=== PATIENT | male | born 1965 | race Two or more races ===

== ENCOUNTER 2017-01-26 09:29 | Inpatient (IN) | payer OTHER ==
[2017-01-26 09:56] VITALS: BMI 33.9
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
[2017-01-26] MEDS ORDERED: ACETAMINOPHEN 325 MG TABLET (FP) PO PRN (10:44)
[2017-01-26] MEDS ORDERED: IBUPROFEN 400 MG TABLET (FP) PO PRN (10:44)
[2017-01-26] MEDS ORDERED: LOPERAMIDE HCL 2 MG CAPSULE PO PRN (10:44)
[2017-01-26] MEDS ORDERED: guaiFENesin/D-METHORPHAN HB 10 ML UNIT-DOSE CUPS PO PRN (10:44)
[2017-01-26] MEDS ORDERED: hydrOXYzine PAMOATE 50 MG CAPSULE (FP) PO PRN (10:44)
[2017-01-26] MEDS ORDERED: P-EPHED 60MG/TRIPROLIDI 2.5MG TABLET PO PRN (10:44)
[2017-01-26] MEDS ORDERED: MAGNESIUM HYDROX 2400MG/30ML ORAL SUSPENSION 30 ML CUP PO PRN (10:44)
[2017-01-26] MEDS ORDERED: MAGNESIUM CITRATE 300 ML BOTTLE PO PRN (10:44)
[2017-01-26] MEDS ORDERED: diphenhydrAMINE HCL 50 MG CAPSULE PO PRN (10:44)
[2017-01-26] MEDS ORDERED: chlordiazePOXIDE HCL 25 MG CAPSULE PO PRN (10:44)
[2017-01-26] MEDS ORDERED: MENTHOL/PHENOL 1 EACH UD MM PRN (10:44)
[2017-01-26] MEDS ORDERED: MAG HYDROX/AL HYDROX/SIMETH 30 ML UNIT-DOSE CUP PO PRN (10:44)
[2017-01-26] MEDS ORDERED: COLLOIDAL OATMEAL 1 BAR EACH TP PRN (10:45)
[2017-01-26] MEDS ORDERED: chlordiazePOXIDE HCL 25 MG CAPSULE PO ONE (12:00)
[2017-01-26] MEDS: amLODIPine BESYLATE 10 MG TABLET (FP) PO SCH (13:45)
[2017-01-26] MEDS: KETOCONAZOLE 2 % SHAMPOO 120 ML BOTTLE TP SCH (14:35)
[2017-01-26] MEDS: KETOCONOZOLE 2% TOPICAL CREAM 15 GM TUBE TP SCH ×2 (14:36→23:09)
[2017-01-26] MEDS: SILVER SULFADIAZINE 1% TOP CREAM 50 GM JAR TP SCH ×2 (14:36→23:09)
[2017-01-26] MEDS: chlordiazePOXIDE HCL 25 MG CAPSULE PO SCH ×2 (17:46→22:41)
--- NOTE | 2017-01-26 18:10 | CONSULT ---
[facility] Psychiatric Consult - Data Date of interview: 01/26/17 Admission source: [facility] Identifying data: Another admission to [facility] for this 51 y/o male seeking detox treatment on for alcohol and cocaine (crack) dependence.Patient is single without children,homeless (resides in a detention), unemployed and supported on [facility] benefits. Substance Abuse History: Reviewed with patient in this isnterview.Mr Andrea confirms os report. Smoking Cessation. Smoking history: Former smoker. Have you smoked in the past 12 months: No. If you are a former smoker, when did you quit?: 2011. Cigars Per Day: 0 (Stopped in 2011.). Hx Chewing Tobacco Use: No. Initiated information on smoking cessation: No. - Substance & Tx. History. Hx Alcohol Use: Yes. Hx Substance Use: No. Substance Use Type: Alcohol. Hx Substance Use Treatment: Yes (detox). - Substances Abused. Alcohol. Route: Oral. Frequency: Daily. Amount used: 3-4 pints liquor (vodka) . Age of first use: 35. Date of Last Use: 01/25/17 Medical History: Significant for hypertension,kidney stones and a history of corrective eye surgery for strabismus. Psychiatric History: History of multiple psychiatric hospitalizations and multiple admissions to local detox/rehab units.Patient is known to [facility] (site of his first admission at age 48),[facility] and [facility] (a year ago).Diagnosed with MDD / Bipolar Disorder and prescribed trazodone,wellbutrin and abilify.No history of regular psychiatric OPD care.Mr Andrea utilizes local emergency rooms (CPEP settings) as outlets for medications refills.Questionable history of suicide attempts (no recall). Physical/Sexual Abuse/Trauma History: Patient denies. Additional Comment: Urine Drug Screen Results: BZO-Benzodiazepines.Noted. Mental Status Exam - Mental Status Exam Alert and Oriented to: Time, Place, Person Cognitive Function: Good Patient Appearance: Unkempt, Disheveled Mood: Nervous, Withdrawn, Anxious Affect: Mood Congruent Patient Behavior: Fatigued, Cooperative Speech Pattern: Clear Voice Loudness: Normal Thought Process: Goal Oriented Thought Disorder: Not Present Hallucinations: Denies Suicidal Ideation: Denies Homicidal Ideation: Denies Insight/Judgement: Poor Sleep: Poorly, Difficulty falling asleep Appetite: Good Muscle strength/Tone: Normal Gait/Station: Normal Psychiatric Findings - Problem List ([place] 1, 2,3) (1) Alcohol dependence with uncomplicated withdrawal Current Visit: Yes Status: Acute (2) Alcohol-induced mood disorder Current Visit: Yes Status: Acute (3) Depressive disorder Current Visit: Yes Status: Chronic (4) Essential hypertension Current Visit: Yes Status: Chronic (5) Exotropia of left eye Current Visit: Yes Status: Chronic (6) History of coma Current Visit: Yes Status: Chronic (7) History of renal stone Current Visit: Yes Status: Chronic (8) Psoriasis Current Visit: Yes Status: Chronic (9) HTN (hypertension) Current Visit: Yes Status: Chronic Qualifiers: Hypertension type: essential hypertension Qualified Code(s): I10 - Essential (primary) hypertension (10) Insomnia Current Visit: Yes Status: Acute - Initial Treatment Plan Initial Treatment Plan: Psychoeducation.Detoxification.Medications : lexapro 10 mg po daily + trazodone 100 mg po hs + abilify 10 mg po hs.Side effects/ benefits discussed with patient.Mr Andrea is in agreement with this careplan Observation.Medications reconciled.
[2017-01-26] MEDS: traZODone HCL 100 MG TABLET (FP) PO SCH (22:41)
[2017-01-26] MEDS: THIAMINE HCL 100 MG TABLET (FP) PO SCH (22:41)
[2017-01-26] MEDS: ARIPiprazole 10 MG TABLET PO SCH (22:42)
[2017-01-26 23:22] LABS: URINE APPEARANCE SLCLOUDY; URINE BILIRUBIN NEGATIVE (NEGATIVE); URINE BLOOD 2+ (NEGATIVE); URINE COLOR LTYELLOW; URINE GLUCOSE (UA) NEGATIVE (NEGATIVE); URINE KETONE NEGATIVE (NEGATIVE); URINE NITRITE NEGATIVE (NEGATIVE); URINE UROBILINOGEN NEGATIVE mg/dL (0.2-1.0)
[2017-01-26 23:35] LABS: URINE LEUK ESTERASE 3+ (NEGATIVE); URINE PROTEIN 1+ (NEGATIVE)
[2017-01-26 23:46] LABS: URINE BACTERIA RARE /hpf (NONE SEEN); URINE RBC 14 /hpf (0-3); URINE WBC 28 /hpf (3-5)
[2017-01-27] MEDS: chlordiazePOXIDE HCL 25 MG CAPSULE PO SCH ×4 (05:26→22:49)
[2017-01-27 10:30] LABS: MCH 29.8 pg (25.7-33.7); MCHC 33.5 g/dl (32.0-35.9); MEAN PLT VOLUME 8.9 fl (7.5-11.1); PLATELET COUNT 203 K/MM3 (134-434); RDW 14.6 % (11.9-15.9); WHITE BLOOD COUNT 5.6 K/mm3 (4.0-10.0)
[2017-01-27] MEDS: amLODIPine BESYLATE 10 MG TABLET (FP) PO SCH (10:54)
[2017-01-27] MEDS: PRENATAL VITAMINS W/ FOLIC ACID TABLET (FP) PO SCH (10:54)
[2017-01-27] MEDS: ESCITALOPRAM OXALATE 10 MG TABLET (FP) PO SCH (10:54)
[2017-01-27] MEDS: KETOCONOZOLE 2% TOPICAL CREAM 15 GM TUBE TP SCH ×2 (10:55→22:46)
[2017-01-27 11:16] LABS: ALK PHOS 88 U/L (45-117); ANION GAP 10 (8-16); BILIRUBIN,TOTAL 0.4 mg/dL (0.2-1.0); CO2 27 mmol/L (21-32); CREATININE 0.9 mg/dL (0.7-1.3); GLUCOSE,RANDOM 130 mg/dL (74-106); SGOT/AST 25 U/L (15-37); SGPT/ALT 35 U/L (12-78); TOT PROT 8.4 g/dl (6.4-8.2)
[2017-01-27] MEDS: SILVER SULFADIAZINE 1% TOP CREAM 50 GM JAR TP SCH ×2 (11:45→23:07)
--- NOTE | 2017-01-27 12:43 | PN ---
S CIWA - CIWA Score Nausea/Vomitin Muscle Tremors: 3 Anxiety: 3 Agitation: 2 Paroxysmal Sweats: 1-Minimal Palms Moist Orientation: 0-Oriented Tacttile Disturbances: 1-Very Mild Itch/Numbness Auditory Disturbances: 1-Very Mild Visual Disturbances: 1-Very Mild Sensitivity Headache: 2-Mild CIWA-Ar Total Score: 17 BHS Progress Note (SOAP) Subjective: ALERT,IRRITABLE,ANXIOUS,INTERRUPTED SLEEP,TREMOR Objective: 01/27/17 12:40 Vital Signs Temperature 97.9 F 01/27/17 10:37 Pulse Rate 95 H 01/27/17 10:37 Respiratory Rate 20 01/27/17 10:37 Blood Pressure 139/91 01/27/17 10:37 O2 Sat by Pulse Oximetry (%) EKG NSR,NORMAL ECG Laboratory Last Values WBC 5.6 K/mm3 (4.0-10.0) 01/27/17 06:05 RBC 4.28 M/mm3 (4.00-5.60) 01/27/17 06:05 Hgb 12.8 GM/dL (11.7-16.9) D 01/27/17 06:05 Hct 38.1 % (35.4-49) 01/27/17 06:05 MCV 89.0 fl (80-96) 01/27/17 06:05 MCH 29.8 pg (25.7-33.7) 01/27/17 06:05 MCHC 33.5 g/dl (32.0-35.9) 01/27/17 06:05 RDW 14.6 % (11.9-15.9) 01/27/17 06:05 Plt Count 203 K/MM3 (134-434) D 01/27/17 06:05 MPV 8.9 fl (7.5-11.1) D 01/27/17 06:05 Sodium 136 mmol/L (136-145) 01/27/17 06:05 Potassium 3.9 mmol/L (3.5-5.1) 01/27/17 06:05 Chloride 99 mmol/L (98-107) 01/27/17 06:05 Carbon Dioxide 27 mmol/L (21-32) 01/27/17 06:05 Anion Gap 10 (8-16) 01/27/17 06:05 BUN 12 mg/dL (7-18) 01/27/17 06:05 Creatinine 0.9 mg/dL (0.7-1.3) 01/27/17 06:05 Creat Clearance w eGFR > 60 (>60) 01/27/17 06:05 Random Glucose 130 mg/dL (74-106) H 01/27/17 06:05 Calcium 9.0 mg/dL (8.5-10.1) 01/27/17 06:05 Total Bilirubin 0.4 mg/dL (0.2-1.0) 01/27/17 06:05 AST 25 U/L (15-37) D 01/27/17 06:05 ALT 35 U/L (12-78) D 01/27/17 06:05 Alkaline Phosphatase 88 U/L (45-117) D 01/27/17 06:05 Total Protein 8.4 g/dl (6.4-8.2) H 01/27/17 06:05 Albumin 4.0 g/dl (3.4-5.0) 01/27/17 06:05 Urine Color Ltyellow 01/26/17 23:10 Urine Appearance Slcloudy 01/26/17 23:10 Urine pH 5.0 (5.0-8.0) 01/26/17 23:10 Ur Specific [place] 1.020 (1.005-1.025) 01/26/17 23:10 Urine Protein 1+ (NEGATIVE) H 01/26/17 23:10 Urine Glucose (UA) Negative (NEGATIVE) 01/26/17 23:10 Urine Ketones Negative (NEGATIVE) 01/26/17 23:10 Urine Blood 2+ (NEGATIVE) H 01/26/17 23:10 Urine Nitrite Negative (NEGATIVE) 01/26/17 23:10 Urine Bilirubin Negative (NEGATIVE) 01/26/17 23:10 Urine Urobilinogen Negative mg/dL (0.2-1.0) 01/26/17 23:10 Ur Leukocyte Esterase 3+ (NEGATIVE) H 01/26/17 23:10 Urine RBC 14 /hpf (0-3) 01/26/17 23:10 Urine WBC 28 /hpf (3-5) 01/26/17 23:10 Ur Epithelial Cells Rare /hpf (FEW) 01/26/17 23:10 Urine Bacteria Rare /hpf (NONE SEEN) 01/26/17 23:10 Assessment: 01/27/17 12:42 WITHDRAWAL SYMPTOM Plan: CONTINUE DETOX,INITIAL GLUCOSE IS 140,REPEAT UA,FASTING GLUCOSE IN AM
--- NOTE | 2017-01-27 12:54 | EKG ---
Test Reason : Blood Pressure : / mmHG Vent. Rate : 095 BPM Atrial Rate : 095 BPM P-R Int : 160 ms QRS Dur : 080 ms QT Int : 350 ms P-R-T Axes : 056 014 007 degrees QTc Int : 439 ms NORMAL SINUS RHYTHM NORMAL ECG NO PREVIOUS ECGS AVAILABLE Confirmed by MEGAN CONTRERAS MD ([id number]) on 01/27/2017 12:53:52 PM Referred By: Confirmed By:MEGAN CONTRERAS MD
[2017-01-27] MEDS: traZODone HCL 100 MG TABLET (FP) PO SCH (22:45)
[2017-01-27] MEDS: THIAMINE HCL 100 MG TABLET (FP) PO SCH (22:45)
[2017-01-27] MEDS: ARIPiprazole 10 MG TABLET PO SCH (22:48)
[2017-01-28] MEDS: chlordiazePOXIDE HCL 25 MG CAPSULE PO SCH ×2 (05:23→10:29)
[2017-01-28] MEDS: PRENATAL VITAMINS W/ FOLIC ACID TABLET (FP) PO SCH (10:30)
[2017-01-28] MEDS: amLODIPine BESYLATE 10 MG TABLET (FP) PO SCH (10:30)
[2017-01-28] MEDS: KETOCONOZOLE 2% TOPICAL CREAM 15 GM TUBE TP SCH ×2 (10:30→22:28)
[2017-01-28] MEDS: ESCITALOPRAM OXALATE 10 MG TABLET (FP) PO SCH (10:30)
[2017-01-28] MEDS: SILVER SULFADIAZINE 1% TOP CREAM 50 GM JAR TP SCH ×2 (10:32→22:28)
--- NOTE | 2017-01-28 11:33 | PN ---
S CIWA - CIWA Score Nausea/Vomitin Muscle Tremors: 3 Anxiety: 2 Agitation: 2 Paroxysmal Sweats: 1-Minimal Palms Moist Orientation: 0-Oriented Tacttile Disturbances: 1-Very Mild Itch/Numbness Auditory Disturbances: 1-Very Mild Visual Disturbances: 1-Very Mild Sensitivity Headache: 1-Very Mild CIWA-Ar Total Score: 15 S Progress Note (SOAP) Subjective: ALERT,IRRITABLE,ANXIOUS,INTERRUPTED SLEEP,TREMOR Objective: 01/28/17 11:32 Vital Signs Temperature 97.1 F L 01/28/17 10:38 Pulse Rate 106 H 01/28/17 10:38 Respiratory Rate 20 01/28/17 10:38 Blood Pressure 145/99 01/28/17 10:38 O2 Sat by Pulse Oximetry (%) Laboratory Last Values WBC 5.6 K/mm3 (4.0-10.0) 01/27/17 06:05 RBC 4.28 M/mm3 (4.00-5.60) 01/27/17 06:05 Hgb 12.8 GM/dL (11.7-16.9) D 01/27/17 06:05 Hct 38.1 % (35.4-49) 01/27/17 06:05 MCV 89.0 fl (80-96) 01/27/17 06:05 MCH 29.8 pg (25.7-33.7) 01/27/17 06:05 MCHC 33.5 g/dl (32.0-35.9) 01/27/17 06:05 RDW 14.6 % (11.9-15.9) 01/27/17 06:05 Plt Count 203 K/MM3 (134-434) D 01/27/17 06:05 MPV 8.9 fl (7.5-11.1) D 01/27/17 06:05 Sodium 136 mmol/L (136-145) 01/27/17 06:05 Potassium 3.9 mmol/L (3.5-5.1) 01/27/17 06:05 Chloride 99 mmol/L (98-107) 01/27/17 06:05 Carbon Dioxide 27 mmol/L (21-32) 01/27/17 06:05 Anion Gap 10 (8-16) 01/27/17 06:05 BUN 12 mg/dL (7-18) 01/27/17 06:05 Creatinine 0.9 mg/dL (0.7-1.3) 01/27/17 06:05 Creat Clearance w eGFR > 60 (>60) 01/27/17 06:05 Random Glucose 130 mg/dL (74-106) H 01/27/17 06:05 Fasting Glucose 134 mg/dL (70-105) H 01/28/17 07:00 Calcium 9.0 mg/dL (8.5-10.1) 01/27/17 06:05 Total Bilirubin 0.4 mg/dL (0.2-1.0) 01/27/17 06:05 AST 25 U/L (15-37) D 01/27/17 06:05 ALT 35 U/L (12-78) D 01/27/17 06:05 Alkaline Phosphatase 88 U/L (45-117) D 01/27/17 06:05 Total Protein 8.4 g/dl (6.4-8.2) H 01/27/17 06:05 Albumin 4.0 g/dl (3.4-5.0) 01/27/17 06:05 Urine Color Ltyellow 01/26/17 23:10 Urine Appearance Slcloudy 01/26/17 23:10 Urine pH 5.0 (5.0-8.0) 01/26/17 23:10 Ur Specific [place] 1.020 (1.005-1.025) 01/26/17 23:10 Urine Protein 1+ (NEGATIVE) H 01/26/17 23:10 Urine Glucose (UA) Negative (NEGATIVE) 01/26/17 23:10 Urine Ketones Negative (NEGATIVE) 01/26/17 23:10 Urine Blood 2+ (NEGATIVE) H 01/26/17 23:10 Urine Nitrite Negative (NEGATIVE) 01/26/17 23:10 Urine Bilirubin Negative (NEGATIVE) 01/26/17 23:10 Urine Urobilinogen Negative mg/dL (0.2-1.0) 01/26/17 23:10 Ur Leukocyte Esterase 3+ (NEGATIVE) H 01/26/17 23:10 Urine RBC 14 /hpf (0-3) 01/26/17 23:10 Urine WBC 28 /hpf (3-5) 01/26/17 23:10 Ur Epithelial Cells Rare /hpf (FEW) 01/26/17 23:10 Urine Bacteria Rare /hpf (NONE SEEN) 01/26/17 23:10 RPR Titer Nonreactive (NONREACTIVE) 01/27/17 06:05 Assessment: 01/28/17 11:32 WITHDRAWAL SYMPTOM 01/28/17 11:36 Plan: CONTINUE DETOX,BGM BID,REPEAT UA
[2017-01-28] MEDS: chlordiazePOXIDE 5 MG CAPSULE PO SCH ×2 (17:45→22:20)
[2017-01-28] MEDS: THIAMINE HCL 100 MG TABLET (FP) PO SCH (22:19)
[2017-01-28] MEDS: traZODone HCL 100 MG TABLET (FP) PO SCH (22:20)
[2017-01-28] MEDS: ARIPiprazole 10 MG TABLET PO SCH (22:20)
[2017-01-29] MEDS: chlordiazePOXIDE 5 MG CAPSULE PO SCH ×2 (05:30→10:26)
--- NOTE | 2017-01-29 09:05 | PN ---
BHS Progress Note (SOAP) Subjective: ALERT,IRRITABLE,ANXIOUS,INTERRUPTED SLEEP,PAIN IN THE BODY Objective: 01/29/17 09:02 Vital Signs Temperature 96.4 F L 01/29/17 06:00 Pulse Rate 84 01/29/17 06:00 Respiratory Rate 18 01/29/17 06:00 Blood Pressure 111/65 01/29/17 06:00 O2 Sat by Pulse Oximetry (%) Laboratory Last Values WBC 5.6 K/mm3 (4.0-10.0) 01/27/17 06:05 RBC 4.28 M/mm3 (4.00-5.60) 01/27/17 06:05 Hgb 12.8 GM/dL (11.7-16.9) D 01/27/17 06:05 Hct 38.1 % (35.4-49) 01/27/17 06:05 MCV 89.0 fl (80-96) 01/27/17 06:05 MCH 29.8 pg (25.7-33.7) 01/27/17 06:05 MCHC 33.5 g/dl (32.0-35.9) 01/27/17 06:05 RDW 14.6 % (11.9-15.9) 01/27/17 06:05 Plt Count 203 K/MM3 (134-434) D 01/27/17 06:05 MPV 8.9 fl (7.5-11.1) D 01/27/17 06:05 Sodium 136 mmol/L (136-145) 01/27/17 06:05 Potassium 3.9 mmol/L (3.5-5.1) 01/27/17 06:05 Chloride 99 mmol/L (98-107) 01/27/17 06:05 Carbon Dioxide 27 mmol/L (21-32) 01/27/17 06:05 Anion Gap 10 (8-16) 01/27/17 06:05 BUN 12 mg/dL (7-18) 01/27/17 06:05 Creatinine 0.9 mg/dL (0.7-1.3) 01/27/17 06:05 Creat Clearance w eGFR > 60 (>60) 01/27/17 06:05 POC Glucometer 163 UNITS (()) 01/29/17 05:29 Random Glucose 130 mg/dL (74-106) H 01/27/17 06:05 Fasting Glucose 134 mg/dL (70-105) H 01/28/17 07:00 Calcium 9.0 mg/dL (8.5-10.1) 01/27/17 06:05 Total Bilirubin 0.4 mg/dL (0.2-1.0) 01/27/17 06:05 AST 25 U/L (15-37) D 01/27/17 06:05 ALT 35 U/L (12-78) D 01/27/17 06:05 Alkaline Phosphatase 88 U/L (45-117) D 01/27/17 06:05 Total Protein 8.4 g/dl (6.4-8.2) H 01/27/17 06:05 Albumin 4.0 g/dl (3.4-5.0) 01/27/17 06:05 Urine Color Ltyellow 01/26/17 23:10 Urine Appearance Slcloudy 01/26/17 23:10 Urine pH 5.0 (5.0-8.0) 01/26/17 23:10 Ur Specific [place] 1.020 (1.005-1.025) 01/26/17 23:10 Urine Protein 1+ (NEGATIVE) H 01/26/17 23:10 Urine Glucose (UA) Negative (NEGATIVE) 01/26/17 23:10 Urine Ketones Negative (NEGATIVE) 01/26/17 23:10 Urine Blood 2+ (NEGATIVE) H 01/26/17 23:10 Urine Nitrite Negative (NEGATIVE) 01/26/17 23:10 Urine Bilirubin Negative (NEGATIVE) 01/26/17 23:10 Urine Urobilinogen Negative mg/dL (0.2-1.0) 01/26/17 23:10 Ur Leukocyte Esterase 3+ (NEGATIVE) H 01/26/17 23:10 Urine RBC 14 /hpf (0-3) 01/26/17 23:10 Urine WBC 28 /hpf (3-5) 01/26/17 23:10 Ur Epithelial Cells Rare /hpf (FEW) 01/26/17 23:10 Urine Bacteria Rare /hpf (NONE SEEN) 01/26/17 23:10 RPR Titer Nonreactive (NONREACTIVE) 01/27/17 06:05 Assessment: 01/29/17 09:03 WITHDRAWAL SYMPTOM Plan: CONTINUE DETOX,NEW ON SET OF DM,BGM BID MONITORING,HBA1C,LENS DOTTER CONSULTATION, FOLLOW UP WITH PMD FOR FOLLOW UP AFTER DISCHARGE
[2017-01-29 10:01] LABS: URINE APPEARANCE SLCLOUDY; URINE BILIRUBIN NEGATIVE (NEGATIVE); URINE BLOOD 1+ (NEGATIVE); URINE COLOR STRAW; URINE GLUCOSE (UA) 1+ (NEGATIVE); URINE KETONE NEGATIVE (NEGATIVE); URINE NITRITE NEGATIVE (NEGATIVE); URINE PROTEIN NEGATIVE (NEGATIVE); URINE UROBILINOGEN NEGATIVE mg/dL (0.2-1.0)
[2017-01-29] MEDS: PRENATAL VITAMINS W/ FOLIC ACID TABLET (FP) PO SCH (10:26)
[2017-01-29] MEDS: ESCITALOPRAM OXALATE 10 MG TABLET (FP) PO SCH (10:26)
[2017-01-29] MEDS: KETOCONOZOLE 2% TOPICAL CREAM 15 GM TUBE TP SCH ×2 (10:26→22:23)
[2017-01-29] MEDS: amLODIPine BESYLATE 10 MG TABLET (FP) PO SCH (10:26)
[2017-01-29] MEDS: SILVER SULFADIAZINE 1% TOP CREAM 50 GM JAR TP SCH ×2 (10:29→22:24)
[2017-01-29] MEDS: KETOCONAZOLE 2 % SHAMPOO 120 ML BOTTLE TP SCH (10:30)
[2017-01-29 10:40] LABS: URINE LEUK ESTERASE 3+ (NEGATIVE)
[2017-01-29 11:43] LABS: URINE MUCUS RARE; URINE RBC 3 /hpf (0-3); URINE WBC 45 /hpf (3-5); YEAST RARE
[2017-01-29] MEDS: chlordiazePOXIDE HCL 10 MG CAPSULE PO SCH ×2 (17:41→22:23)
[2017-01-29] MEDS: traZODone HCL 100 MG TABLET (FP) PO SCH (22:23)
[2017-01-29] MEDS: ARIPiprazole 10 MG TABLET PO SCH (22:24)
[2017-01-29] MEDS: THIAMINE HCL 100 MG TABLET (FP) PO SCH (22:24)
[2017-01-30] MEDS: chlordiazePOXIDE HCL 10 MG CAPSULE PO SCH (05:48)
--- NOTE | 2017-01-30 08:37 | DS ---
[facility] Detox Discharge Summary Admission Date: 01/26/17 Discharge Date: 01/30/17 - History Present History: Alcohol Dependence Additional Comments: follow up with [facility] program as arrangement and own pmd for dr [place] Pertinent Past History: essential hypertension history of renal stone psoriasis ulcer left forearm history of coma in 11/24 [facility] history of tracheostomy - Physical Exam Results Vital Signs: Vital Signs Temperature 98.4 F 01/29/17 21:20 Pulse Rate 98 H 01/29/17 21:20 Respiratory Rate 18 01/30/17 00:30 Blood Pressure 144/87 01/29/17 21:20 O2 Sat by Pulse Oximetry (%) Pertinent Admission Physical Exam Findings: withdrawal symptom - Treatment Hospital Course: Detox Protocol Followed, Detoxed Safely, Responded well, Discharged Condition Good Patient has Accepted a Rehab Referral to: declined - Medication Discharge Medications: Ambulatory Orders Aripiprazole [Abilify -] 15 mg PO DAILY 10/21/13 Amlodipine Besylate [Amlodipine Besylate] 10 mg PO DAILY 03/10/16 Aripiprazole [Abilify -] 10 mg PO DAILY #30 tablet 01/26/17 Escitalopram Oxalate [Lexapro -] 10 mg PO DAILY 01/26/17 Escitalopram Oxalate [Lexapro -] 10 mg PO DAILY #30 tablet 01/26/17 Trazodone HCl 100 mg PO HS #20 tablet 01/26/17 Trazodone HCl [Desyrel -] 200 mg PO HS 01/26/17 - Diagnosis (1) Alcohol dependence with uncomplicated withdrawal Current Visit: Yes Status: Acute (2) Alcohol-induced mood disorder Current Visit: Yes Status: Acute (3) Insomnia Current Visit: Yes Status: Acute (4) Depressive disorder Current Visit: Yes Status: Chronic (5) Essential hypertension Current Visit: Yes Status: Chronic (6) Exotropia of left eye Current Visit: Yes Status: Chronic (7) HTN (hypertension) Current Visit: Yes Status: Chronic Qualifiers: Hypertension type: essential hypertension Qualified Code(s): I10 - Essential (primary) hypertension (8) History of coma Current Visit: Yes Status: Chronic (9) Alcohol-induced anxiety disorder Current Visit: No Status: Suspected (10) MDD (major depressive disorder) Current Visit: No Status: Suspected (11) New onset type 2 diabetes mellitus Current Visit: Yes Status: Acute (12) Skin ulcer of forearm Current Visit: Yes Status: Acute - AMA Did Patient Leave Against Medical Advice: No
[2017-01-30] MEDS: ESCITALOPRAM OXALATE 10 MG TABLET (FP) PO SCH (09:27)
[2017-01-30] MEDS: amLODIPine BESYLATE 10 MG TABLET (FP) PO SCH (09:27)
[2017-01-30] MEDS: PRENATAL VITAMINS W/ FOLIC ACID TABLET (FP) PO SCH (09:27)
[2017-01-30] MEDS: KETOCONOZOLE 2% TOPICAL CREAM 15 GM TUBE TP SCH (09:28)
[2017-01-30] MEDS: SILVER SULFADIAZINE 1% TOP CREAM 50 GM JAR TP SCH (09:28)
[2017-01-30 09:51] VITALS: BP 133/81; PULSE 87; TEMP 97.9
== END 2017-01-30 10:15 | disposition home or self-care (01) | DRG 897 ==
LOC: YASAS 09:29 → Y6N 12:40
PROVIDERS: ADMIT Internal Medicine; ATTEND Internal Medicine
PROC: HZ2ZZZZ Detoxification Services for Substance Abuse Treatment (ICD-10-PCS; principal; 2017-01-30)
DX: F19.230 Other psychoactive substance dependence with withdrawal, uncomplicated (principal); F33.9 Major depressive disorder, recurrent, unspecified; F10.230 Alcohol dependence with withdrawal, uncomplicated; F10.24 Alcohol dependence with alcohol-induced mood disorder; G47.00 Insomnia, unspecified; I11.0 Hypertensive heart disease with heart failure; E11.9 Type 2 diabetes mellitus without complications; L40.8 Other psoriasis; H50.10 Unspecified exotropia; L98.491 Non-pressure chronic ulcer of skin of other sites limited to breakdown of skin
CPT/HCPCS: 36415; 80053; 81003; 81015; 82947; 83036; 85027; 86593; 86803; 93005; 93010

== ENCOUNTER 2017-03-22 10:21 | Inpatient (IN) | payer OTHER ==
[2017-03-22 11:48] VITALS: BMI 34.8
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
[2017-03-22] MEDS ORDERED: ACETAMINOPHEN 325 MG TABLET (FP) PO PRN (13:12)
[2017-03-22] MEDS ORDERED: LOPERAMIDE HCL 2 MG CAPSULE PO PRN (13:12)
[2017-03-22] MEDS ORDERED: MAGNESIUM HYDROX 2400MG/30ML ORAL SUSPENSION 30 ML CUP PO PRN (13:12)
[2017-03-22] MEDS ORDERED: MAGNESIUM CITRATE 300 ML BOTTLE PO PRN (13:12)
[2017-03-22] MEDS ORDERED: IBUPROFEN 400 MG TABLET (FP) PO PRN (13:12)
[2017-03-22] MEDS ORDERED: hydrOXYzine PAMOATE 50 MG CAPSULE (FP) PO PRN (13:12)
[2017-03-22] MEDS ORDERED: guaiFENesin/D-METHORPHAN HB 10 ML UNIT-DOSE CUPS PO PRN (13:12)
[2017-03-22] MEDS ORDERED: MAG HYDROX/AL HYDROX/SIMETH 30 ML UNIT-DOSE CUP PO PRN (13:12)
[2017-03-22] MEDS ORDERED: P-EPHED 60MG/TRIPROLIDI 2.5MG TABLET PO PRN (13:12)
[2017-03-22] MEDS ORDERED: MENTHOL/PHENOL 1 EACH UD MM PRN (13:12)
[2017-03-22] MEDS ORDERED: chlordiazePOXIDE HCL 25 MG CAPSULE PO PRN (13:12)
[2017-03-22] MEDS ORDERED: chlordiazePOXIDE HCL 25 MG CAPSULE PO ONE (13:53)
[2017-03-22] MEDS: SILVER SULFADIAZINE 1% TOP CREAM 50 GM JAR TP SCH ×2 (15:24→22:44)
[2017-03-22] MEDS: amLODIPine BESYLATE 10 MG TABLET (FP) PO SCH (15:24)
[2017-03-22] MEDS: chlordiazePOXIDE HCL 25 MG CAPSULE PO SCH ×2 (17:15→22:13)
[2017-03-22 20:25] LABS: URINE APPEARANCE SLCLOUDY; URINE BILIRUBIN NEGATIVE (NEGATIVE); URINE BLOOD 2+ (NEGATIVE); URINE COLOR YELLOW; URINE GLUCOSE (UA) NEGATIVE (NEGATIVE); URINE KETONE NEGATIVE (NEGATIVE); URINE NITRITE NEGATIVE (NEGATIVE); URINE UROBILINOGEN NEGATIVE mg/dL (0.2-1.0)
[2017-03-22 20:41] LABS: URINE PROTEIN 2+ (NEGATIVE)
[2017-03-22 20:51] LABS: URINE BACTERIA MODERATE /hpf (NONE SEEN); URINE RBC 16 /hpf (0-3); URINE WBC 82 /hpf (3-5)
[2017-03-22 21:57] LABS: URINE LEUK ESTERASE 1+ (NEGATIVE)
[2017-03-22] MEDS: cloNIDine HCL 0.1 MG TABLET PO PRN (22:13)
[2017-03-22] MEDS: THIAMINE HCL 100 MG TABLET (FP) PO SCH (22:13)
[2017-03-22] MEDS: diphenhydrAMINE HCL 50 MG CAPSULE PO PRN (22:14)
[2017-03-23] MEDS: diphenhydrAMINE HCL 50 MG CAPSULE PO PRN (00:26)
[2017-03-23] MEDS: chlordiazePOXIDE HCL 25 MG CAPSULE PO SCH ×4 (05:32→22:48)
[2017-03-23] MEDS: PRENATAL VITAMINS W/ FOLIC ACID TABLET (FP) PO SCH (10:58)
[2017-03-23] MEDS: amLODIPine BESYLATE 10 MG TABLET (FP) PO SCH (10:58)
[2017-03-23 11:02] LABS: MCH 28.7 pg (25.7-33.7); MCHC 32.9 g/dl (32.0-35.9); MEAN CELL VOLUME 87.3 fl (80-96); MEAN PLT VOLUME 8.7 fl (7.5-11.1); PLATELET COUNT 251 K/MM3 (134-434); RDW 15.1 % (11.9-15.9); WHITE BLOOD COUNT 7.4 K/mm3 (4.0-10.0)
[2017-03-23] MEDS: SILVER SULFADIAZINE 1% TOP CREAM 50 GM JAR TP SCH ×2 (11:07→22:49)
[2017-03-23 11:08] LABS: ALBUMIN 4.2 g/dl (3.4-5.0); ANION GAP 10 (8-16); CO2 29 mmol/L (21-32); GLUCOSE,RANDOM 123 mg/dL (74-106)
--- NOTE | 2017-03-23 12:54 | EKG ---
Test Reason : Blood Pressure : / mmHG Vent. Rate : 102 BPM Atrial Rate : 102 BPM P-R Int : 156 ms QRS Dur : 076 ms QT Int : 322 ms P-R-T Axes : 057 023 033 degrees QTc Int : 419 ms SINUS TACHYCARDIA POSSIBLE LEFT ATRIAL ENLARGEMENT WHEN COMPARED WITH ECG OF 26-JAN-2017 14:14, NO SIGNIFICANT CHANGE WAS FOUND Confirmed by EDMAR PERKINS MD ([id number]) on 03/23/2017 12:54:12 PM Referred By: Confirmed By:EDMAR PERKINS MD
[2017-03-23 12:57] LABS: ALK PHOS 84 U/L (45-117); BILIRUBIN,TOTAL 0.7 mg/dL (0.2-1.0); SGOT/AST 24 U/L (15-37); SGPT/ALT 26 U/L (12-78); TOT PROT 8.6 g/dl (6.4-8.2)
--- NOTE | 2017-03-23 13:15 | PN ---
[facility] CIWA - CIWA Score Nausea/Vomitin Muscle Tremors: 3 Anxiety: 3 Agitation: 3 Paroxysmal Sweats: 1-Minimal Palms Moist Orientation: 0-Oriented Tacttile Disturbances: 1-Very Mild Itch/Numbness Auditory Disturbances: 1-Very Mild Visual Disturbances: 0-None Headache: 2-Mild CIWA-Ar Total Score: 17 BHS Progress Note (SOAP) Subjective: alert,irritable,anxious,interrupted sleep,tremor,pain in the body Objective: 03/23/17 13:12 Vital Signs Temperature 97.7 F 03/23/17 10:31 Pulse Rate 96 H 03/23/17 10:31 Respiratory Rate 20 03/23/17 10:31 Blood Pressure 144/94 03/23/17 10:31 O2 Sat by Pulse Oximetry (%) ekg sinus tachycardia 102/min no chest pain,no sob,no dizziness Laboratory Last Values WBC 7.4 K/mm3 (4.0-10.0) D 03/23/17 06:00 RBC 4.51 M/mm3 (4.00-5.60) 03/23/17 06:00 Hgb 13.0 GM/dL (11.7-16.9) 03/23/17 06:00 Hct 39.4 % (35.4-49) 03/23/17 06:00 MCV 87.3 fl (80-96) 03/23/17 06:00 MCH 28.7 pg (25.7-33.7) 03/23/17 06:00 MCHC 32.9 g/dl (32.0-35.9) 03/23/17 06:00 RDW 15.1 % (11.9-15.9) 03/23/17 06:00 Plt Count 251 K/MM3 (134-434) D 03/23/17 06:00 MPV 8.7 fl (7.5-11.1) 03/23/17 06:00 Sodium 137 mmol/L (136-145) 03/23/17 06:00 Potassium 4.0 mmol/L (3.5-5.1) 03/23/17 06:00 Chloride 98 mmol/L (98-107) 03/23/17 06:00 Carbon Dioxide 29 mmol/L (21-32) 03/23/17 06:00 Anion Gap 10 (8-16) 03/23/17 06:00 BUN 13 mg/dL (7-18) 03/23/17 06:00 Creatinine 1.0 mg/dL (0.7-1.3) 03/23/17 06:00 Creat Clearance w eGFR > 60 (>60) 03/23/17 06:00 POC Glucometer 191 UNITS (()) 03/22/17 16:26 Random Glucose 123 mg/dL (74-106) H 03/23/17 06:00 Total Bilirubin 0.7 mg/dL (0.2-1.0) D 03/23/17 06:00 AST 24 U/L (15-37) 03/23/17 06:00 ALT 26 U/L (12-78) D 03/23/17 06:00 Alkaline Phosphatase 84 U/L (45-117) 03/23/17 06:00 Total Protein 8.6 g/dl (6.4-8.2) H 03/23/17 06:00 Albumin 4.2 g/dl (3.4-5.0) 03/23/17 06:00 Urine Color Yellow 03/22/17 19:00 Urine Appearance Slcloudy 03/22/17 19:00 Urine pH 5.0 (5.0-8.0) 03/22/17 19:00 Ur Specific [place] 1.020 (1.005-1.025) 03/22/17 19:00 Urine Protein 2+ (NEGATIVE) H 03/22/17 19:00 Urine Glucose (UA) Negative (NEGATIVE) 03/22/17 19:00 Urine Ketones Negative (NEGATIVE) 03/22/17 19:00 Urine Blood 2+ (NEGATIVE) H 03/22/17 19:00 Urine Nitrite Negative (NEGATIVE) 03/22/17 19:00 Urine Bilirubin Negative (NEGATIVE) 03/22/17 19:00 Urine Urobilinogen Negative mg/dL (0.2-1.0) 03/22/17 19:00 Ur Leukocyte Esterase 1+ (NEGATIVE) H 03/22/17 19:00 Urine RBC 16 /hpf (0-3) 03/22/17 19:00 Urine WBC 82 /hpf (3-5) 03/22/17 19:00 Ur Epithelial Cells Rare /hpf (FEW) 03/22/17 19:00 Urine Bacteria Moderate /hpf (NONE SEEN) 03/22/17 19:00 Assessment: 03/23/17 13:14 withdrawal symptom Plan: continue detox,urine for c/s,uti,bactrim ds 1 tab po bid
[2017-03-23 13:16] LABS: CALCIUM 9.7 mg/dL (8.5-10.1)
--- NOTE | 2017-03-23 16:49 | CONSULT ---
[facility] Psychiatric Consult - Data Date of interview: 03/23/17 Admission source: [facility] Identifying data: Readmission to [facility] for this 52 y/o male seeking detox treatment on for alcohol and cocaine (crack) dependence.Patient is single without children,homeless (resides in a assisted), unemployed and supported on SSI benefits. Substance Abuse History: Confirmed by the patient in this interview. Smoking Cessation. Smoking history: Former smoker. Have you smoked in the past 12 months: No. If you are a former smoker, when did you quit?: 2011. Cigars Per Day: 0. Hx Chewing Tobacco Use: No. Initiated information on smoking cessation : No. - Substance & Tx. History. Hx Alcohol Use: Yes. Hx Substance Use: No. Substance Use Type: Alcohol. Hx Substance Use Treatment: Yes ([facility] 01/26/17 to 01/30/17). - Substances Abused. Alcohol. Route: Oral. Frequency: Daily. Amount used: 2-4 PINTS VODKA. Age of first use: 35. Date of Last Use: 03/21/17 Medical History: Diabetes mellitus,hypertension,nephrolithiasis,past history of head trauma (was in coma),previously treated with a tracheostomy and history of corrective eye surgery for strabismus. Psychiatric History: Minimal changes since previous encounter with this va underwriter on 01/16/17. As follows : " history of multiple psychiatric hospitalizations and multiple admissions to local detox/rehab units.Patient is known to [facility] (site of his first admission at age 48),[facility] and [facility] (a year ago).Diagnosed with MDD / Bipolar Disorder and prescribed trazodone,wellbutrin and abilify.No history of regular psychiatric OPD care.Mr Andrea utilizes local emergency rooms (CPEP settings) as outlets for medications refills.Questionable history of suicide attempts (no recall)." End of quote.Patient,in this interview,indicates that [facility]Denies suicide attempts. Physical/Sexual Abuse/Trauma History: Patient denies history of abuse. Additional Comment: Urine Drug Screen Results: BZO-Benzodiazepines.Noted. Mental Status Exam - Mental Status Exam Alert and Oriented to: Time, Place Cognitive Function: Grossly Intact Patient Appearance: Well Groomed Mood: Nervous, Anxious, Hopeful Affect: Mood Congruent, Normal Range Patient Behavior: Fatigued, Appropriate, Cooperative Speech Pattern: Clear Voice Loudness: Normal Thought Process: Goal Oriented Thought Disorder: Not Present Hallucinations: Denies Suicidal Ideation: Denies Homicidal Ideation: Denies Insight/Judgement: Poor Sleep: Poorly, Difficulty falling asleep (wants ambien) Appetite: Fair Muscle strength/Tone: Normal Gait/Station: Normal Psychiatric Findings - Problem List ([place] 1, 2,3) (1) Alcohol dependence with uncomplicated withdrawal Current Visit: Yes Status: Acute (2) Alcohol-induced mood disorder Current Visit: Yes Status: Acute (3) Depressive disorder Current Visit: Yes Status: Chronic (4) Diabetes Current Visit: Yes Status: Acute (5) HTN (hypertension) Current Visit: Yes Status: Chronic Qualifiers: Hypertension type: essential hypertension Qualified Code(s): I10 - Essential (primary) hypertension; I10 - Essential (primary) hypertension; I10 - Essential (primary) hypertension (6) History of renal stone Current Visit: Yes Status: Chronic (7) Psoriasis Current Visit: Yes Status: Chronic (8) Exotropia of left eye Current Visit: No Status: Chronic (9) Insomnia secondary to depression with anxiety Current Visit: Yes Status: Acute - Initial Treatment Plan Initial Treatment Plan: Psychoeducation.Detoxification.Medications : abilify 10 mg po hs + bupropion 100 mg po bid.Side effects/benefits are discussed with the patient.He agrees with this careplan.Observation.
[2017-03-23] MEDS: SULFAMETHOXAZOLE/TRIMETHOPRIM 800MG/160MG D.S. TABLET PO SCH (22:48)
[2017-03-23] MEDS: THIAMINE HCL 100 MG TABLET (FP) PO SCH (22:48)
[2017-03-23] MEDS: ARIPiprazole 10 MG TABLET PO SCH (22:49)
[2017-03-24] MEDS: chlordiazePOXIDE HCL 25 MG CAPSULE PO SCH ×2 (06:03→10:57)
[2017-03-24] MEDS: SILVER SULFADIAZINE 1% TOP CREAM 50 GM JAR TP SCH ×2 (10:57→23:00)
[2017-03-24] MEDS: buPROPion HCL 100 MG TABLET PO SCH ×2 (10:57→15:29)
[2017-03-24] MEDS: amLODIPine BESYLATE 10 MG TABLET (FP) PO SCH (10:57)
[2017-03-24] MEDS: PRENATAL VITAMINS W/ FOLIC ACID TABLET (FP) PO SCH (10:57)
[2017-03-24] MEDS: SULFAMETHOXAZOLE/TRIMETHOPRIM 800MG/160MG D.S. TABLET PO SCH ×2 (10:57→22:59)
--- NOTE | 2017-03-24 11:00 | PN ---
Psychiatric Progress Note Vital Signs: Vital Signs Period Temp Pulse Resp BP Sys/Dia Pulse Ox Last 24 Hr 96.1 F-98 F 88-98 18-20 111-144/83-94 Date of Session: 03/24/17 Chief Complaint:: Insomnia HPI: Patient addressing Alcohol Dependence comorbid with Alcohol-Induced Mood Disorder, Depressive Disorder ROS: HTN, DM, Psoriasis, Kidney stone Current Medications: Active Medications Generic Name Dose Route Start Last Admin Trade Name Freq PRN Reason Stop Dose Admin Acetaminophen 650 mg 03/22/17 13:12 Tylenol - PO Q4H PRN FEVER OR PAIN Al Hydroxide/Mg Hydroxide 30 ml 03/22/17 13:12 Mylanta Oral Suspension - PO Q6H PRN DYSPEPSIA Amlodipine Besylate 10 mg 03/22/17 13:55 03/23/17 10:58 Norvasc - PO 10 mg DAILY FERNANDA Administration Aripiprazole 10 mg 03/23/17 22:00 03/23/17 22:49 Abilify PO 10 mg HS FERNANDA Administration Bupropion HCl 100 mg 03/24/17 10:00 Wellbutrin - PO BID@1000,1600 FERNANDA Chlordiazepoxide HCl 10 mg 03/25/17 17:00 Librium - PO 03/26/17 11:01 [id number] FERNANDA Chlordiazepoxide HCl 25 mg 03/22/17 13:12 03/23/17 00:26 Librium - PO 03/25/17 13:11 25 mg Q4H PRN Administration WITHDRAWAL(CONT SUBST) Chlordiazepoxide HCl 25 mg 03/23/17 17:00 03/24/17 06:03 Librium - PO 03/24/17 11:01 25 mg [id number] FERNANDA Administration Chlordiazepoxide HCl 15 mg 03/24/17 17:00 Librium - PO 03/25/17 11:01 [id number] FERNANDA Clonidine 0.1 mg 03/22/17 22:08 03/22/17 22:13 Catapres - PO 0.1 mg Q6H PRN Administration HYPERTENSION Diphenhydramine HCl 50 mg 03/22/17 13:12 03/23/17 00:26 Benadryl - PO 50 mg HSMR1 PRN Administration INSOMNIA Eucalyptus/Menthol/Phenol/Sorbitol 1 each 03/22/17 13:12 Cepastat Lozenge - MM Q4H PRN SORE THROAT Guaifenesin 10 ml 03/22/17 13:12 Robitussin Dm - PO Q6H PRN COUGH Hydrocortisone 1 applic 03/24/17 10:00 Hytone 1% Cream - TP DAILY FERNANDA Hydroxyzine Pamoate 50 mg 03/22/17 13:12 Vistaril - PO Q4H PRN AGITATION Ibuprofen 400 mg 03/22/17 13:12 Motrin - PO Q6H PRN SEVERE PAIN Loperamide HCl 4 mg 03/22/17 13:12 Imodium - PO Q6H PRN DIARRHEA Magnesium Citrate 300 ml 03/22/17 13:12 Citroma - PO Q48H PRN CONSTIPATION Magnesium Hydroxide 30 ml 03/22/17 13:12 Milk Of Magnesia - PO DAILY PRN CONSTIPATION Multivit/Folic Acid/Iron 1 tab 03/23/17 10:00 03/23/17 10:58 Vitamins (Sjr) - PO 1 tab DAILY FERNANDA Administration Pseudoephedrine/Triprolidine 1 combo 03/22/17 13:12 Actifed - PO TID PRN NASAL CONGESTION Silver Sulfadiazine 1 applic 03/22/17 13:30 03/23/17 22:49 Silvadene - TP Not Given BID FERNANDA Thiamine HCl 100 mg 03/22/17 22:00 03/23/17 22:48 Vitamin B1 - PO 100 mg HS FERNANDA Administration Trimethoprim/Sulfamethoxazole 1 each 03/23/17 22:00 03/23/17 22:48 Bactrim Ds - PO 1 each BID FERNANDA Administration Zolpidem Tartrate 10 mg 03/24/17 10:54 Ambien - PO HS PRN INSOMNIA Current Side Effect: No Lab tests ordered: Yes Lab tests reviewed: Yes Provider note:: Patient reports experiencing difficulty to sleep. Told sports writer that he has been sleeping poorly despite taking medications. Requests to be ordered Ambien to which he responded well in the past Total face to face time:: 25 Mental Status Exam - Mental Status Exam Alert and Oriented to: Time, Place, Person Cognitive Function: Fair Mood: Hopeful, Euthymic Affect: Appropriate Patient Behavior: Cooperative Speech Pattern: Clear Voice Loudness: Normal Thought Process: Intact, Goal Oriented Thought Disorder: Not Present Hallucinations: Denies Suicidal Ideation: Denies Homicidal Ideation: Denies Insight/Judgement: Poor Sleep: Poorly Appetite: Good Muscle strength/Tone: Normal Gait/Station: Normal Psychiatric Treatment Plan - Problem List (1) Depressive disorder Current Visit: Yes (2) Alcohol-induced mood disorder Current Visit: Yes (3) Alcohol-induced sleep disorder Current Visit: Yes (4) Alcohol dependence with uncomplicated withdrawal Current Visit: Yes (5) Diabetes Current Visit: Yes (6) HTN (hypertension) Current Visit: Yes Qualifiers: Hypertension type: essential hypertension Qualified Code(s): I10 - Essential (primary) hypertension; I10 - Essential (primary) hypertension; I10 - Essential (primary) hypertension (7) History of renal stone Current Visit: Yes (8) Exotropia of left eye Current Visit: No Initial treatment plan: 1) Start Ambien 10 mg po HS prn for insomnia. 2) Continue inpatient detoxification
[2017-03-24] MEDS: HYDROCORTISONE 1% TOPICAL CREAM 30 GM TUBE TP SCH (11:21)
--- NOTE | 2017-03-24 13:39 | PN ---
S CIWA - CIWA Score Nausea/Vomitin Muscle Tremors: 3 Anxiety: 3 Agitation: 2 Paroxysmal Sweats: 1-Minimal Palms Moist Orientation: 0-Oriented Tacttile Disturbances: 1-Very Mild Itch/Numbness Auditory Disturbances: 1-Very Mild Visual Disturbances: 0-None Headache: 2-Mild CIWA-Ar Total Score: 16 BHS Progress Note (SOAP) Subjective: ALERT,IRRITABLE,ANXIOUS,INTERRUPTED SLEEP,TREMOR Objective: 03/24/17 13:36 Vital Signs Temperature 98.3 F 03/24/17 11:02 Pulse Rate 78 03/24/17 11:02 Respiratory Rate 18 03/24/17 11:02 Blood Pressure 113/87 03/24/17 11:02 O2 Sat by Pulse Oximetry (%) Vital Signs Temperature 98.3 F 03/24/17 11:02 Pulse Rate 78 03/24/17 11:02 Respiratory Rate 18 03/24/17 11:02 Blood Pressure 113/87 03/24/17 11:02 O2 Sat by Pulse Oximetry (%) Laboratory Last Values WBC 7.4 K/mm3 (4.0-10.0) D 03/23/17 06:00 RBC 4.51 M/mm3 (4.00-5.60) 03/23/17 06:00 Hgb 13.0 GM/dL (11.7-16.9) 03/23/17 06:00 Hct 39.4 % (35.4-49) 03/23/17 06:00 MCV 87.3 fl (80-96) 03/23/17 06:00 MCH 28.7 pg (25.7-33.7) 03/23/17 06:00 MCHC 32.9 g/dl (32.0-35.9) 03/23/17 06:00 RDW 15.1 % (11.9-15.9) 03/23/17 06:00 Plt Count 251 K/MM3 (134-434) D 03/23/17 06:00 MPV 8.7 fl (7.5-11.1) 03/23/17 06:00 Sodium 137 mmol/L (136-145) 03/23/17 06:00 Potassium 4.0 mmol/L (3.5-5.1) 03/23/17 06:00 Chloride 98 mmol/L (98-107) 03/23/17 06:00 Carbon Dioxide 29 mmol/L (21-32) 03/23/17 06:00 Anion Gap 10 (8-16) 03/23/17 06:00 BUN 13 mg/dL (7-18) 03/23/17 06:00 Creatinine 1.0 mg/dL (0.7-1.3) 03/23/17 06:00 Creat Clearance w eGFR > 60 (>60) 03/23/17 06:00 POC Glucometer 215 UNITS (()) 03/23/17 16:42 Random Glucose 123 mg/dL (74-106) H 03/23/17 06:00 Calcium 9.7 mg/dL (8.5-10.1) 03/23/17 06:00 Total Bilirubin 0.7 mg/dL (0.2-1.0) D 03/23/17 06:00 AST 24 U/L (15-37) 03/23/17 06:00 ALT 26 U/L (12-78) D 03/23/17 06:00 Alkaline Phosphatase 84 U/L (45-117) 03/23/17 06:00 Total Protein 8.6 g/dl (6.4-8.2) H 03/23/17 06:00 Albumin 4.2 g/dl (3.4-5.0) 03/23/17 06:00 Urine Color Yellow 03/22/17 19:00 Urine Appearance Slcloudy 03/22/17 19:00 Urine pH 5.0 (5.0-8.0) 03/22/17 19:00 Ur Specific [place] 1.020 (1.005-1.025) 03/22/17 19:00 Urine Protein 2+ (NEGATIVE) H 03/22/17 19:00 Urine Glucose (UA) Negative (NEGATIVE) 03/22/17 19:00 Urine Ketones Negative (NEGATIVE) 03/22/17 19:00 Urine Blood 2+ (NEGATIVE) H 03/22/17 19:00 Urine Nitrite Negative (NEGATIVE) 03/22/17 19:00 Urine Bilirubin Negative (NEGATIVE) 03/22/17 19:00 Urine Urobilinogen Negative mg/dL (0.2-1.0) 03/22/17 19:00 Ur Leukocyte Esterase 1+ (NEGATIVE) H 03/22/17 19:00 Urine RBC 16 /hpf (0-3) 03/22/17 19:00 Urine WBC 82 /hpf (3-5) 03/22/17 19:00 Ur Epithelial Cells Rare /hpf (FEW) 03/22/17 19:00 Urine Bacteria Moderate /hpf (NONE SEEN) 03/22/17 19:00 RPR Titer Nonreactive (NONREACTIVE) 03/23/17 06:00 Assessment: 03/24/17 13:38 WITHDRAWAL SYMPTOM Plan: CONTINUE DETOX,URINE FOR C/S PENDING,CONTINUE BACTRIM S 1 TAB PO BID FOR UTI
[2017-03-24] MEDS: chlordiazePOXIDE 5 MG CAPSULE PO SCH ×2 (17:56→22:59)
[2017-03-24] MEDS: THIAMINE HCL 100 MG TABLET (FP) PO SCH (22:59)
[2017-03-24] MEDS: ZOLPIDEM TARTRATE 5 MG TABLET PO PRN (23:00)
[2017-03-24] MEDS: ARIPiprazole 10 MG TABLET PO SCH (23:00)
[2017-03-25] MEDS: chlordiazePOXIDE 5 MG CAPSULE PO SCH ×2 (05:42→10:45)
[2017-03-25] MEDS: SULFAMETHOXAZOLE/TRIMETHOPRIM 800MG/160MG D.S. TABLET PO SCH ×2 (10:45→22:13)
[2017-03-25] MEDS: HYDROCORTISONE 1% TOPICAL CREAM 30 GM TUBE TP SCH (10:45)
[2017-03-25] MEDS: PRENATAL VITAMINS W/ FOLIC ACID TABLET (FP) PO SCH (10:45)
[2017-03-25] MEDS: amLODIPine BESYLATE 10 MG TABLET (FP) PO SCH (10:45)
[2017-03-25] MEDS: SILVER SULFADIAZINE 1% TOP CREAM 50 GM JAR TP SCH ×2 (10:46→22:17)
[2017-03-25] MEDS: buPROPion HCL 100 MG TABLET PO SCH ×2 (11:24→17:23)
--- NOTE | 2017-03-25 12:27 | PN ---
BHS Progress Note (SOAP) Subjective: alert,irritable,anxious,interrupted sleep Objective: 03/25/17 12:26 Vital Signs Temperature 97.5 F L 03/25/17 11:10 Pulse Rate 104 H 03/25/17 11:10 Respiratory Rate 20 03/25/17 11:10 Blood Pressure 145/98 03/25/17 11:10 O2 Sat by Pulse Oximetry (%) Laboratory Last Values WBC 7.4 K/mm3 (4.0-10.0) D 03/23/17 06:00 RBC 4.51 M/mm3 (4.00-5.60) 03/23/17 06:00 Hgb 13.0 GM/dL (11.7-16.9) 03/23/17 06:00 Hct 39.4 % (35.4-49) 03/23/17 06:00 MCV 87.3 fl (80-96) 03/23/17 06:00 MCH 28.7 pg (25.7-33.7) 03/23/17 06:00 MCHC 32.9 g/dl (32.0-35.9) 03/23/17 06:00 RDW 15.1 % (11.9-15.9) 03/23/17 06:00 Plt Count 251 K/MM3 (134-434) D 03/23/17 06:00 MPV 8.7 fl (7.5-11.1) 03/23/17 06:00 Sodium 137 mmol/L (136-145) 03/23/17 06:00 Potassium 4.0 mmol/L (3.5-5.1) 03/23/17 06:00 Chloride 98 mmol/L (98-107) 03/23/17 06:00 Carbon Dioxide 29 mmol/L (21-32) 03/23/17 06:00 Anion Gap 10 (8-16) 03/23/17 06:00 BUN 13 mg/dL (7-18) 03/23/17 06:00 Creatinine 1.0 mg/dL (0.7-1.3) 03/23/17 06:00 Creat Clearance w eGFR > 60 (>60) 03/23/17 06:00 POC Glucometer 134 UNITS (()) 03/25/17 05:46 Random Glucose 123 mg/dL (74-106) H 03/23/17 06:00 Calcium 9.7 mg/dL (8.5-10.1) 03/23/17 06:00 Total Bilirubin 0.7 mg/dL (0.2-1.0) D 03/23/17 06:00 AST 24 U/L (15-37) 03/23/17 06:00 ALT 26 U/L (12-78) D 03/23/17 06:00 Alkaline Phosphatase 84 U/L (45-117) 03/23/17 06:00 Total Protein 8.6 g/dl (6.4-8.2) H 03/23/17 06:00 Albumin 4.2 g/dl (3.4-5.0) 03/23/17 06:00 Urine Color Yellow 03/22/17 19:00 Urine Appearance Slcloudy 03/22/17 19:00 Urine pH 5.0 (5.0-8.0) 03/22/17 19:00 Ur Specific [place] 1.020 (1.005-1.025) 03/22/17 19:00 Urine Protein 2+ (NEGATIVE) H 03/22/17 19:00 Urine Glucose (UA) Negative (NEGATIVE) 03/22/17 19:00 Urine Ketones Negative (NEGATIVE) 03/22/17 19:00 Urine Blood 2+ (NEGATIVE) H 03/22/17 19:00 Urine Nitrite Negative (NEGATIVE) 03/22/17 19:00 Urine Bilirubin Negative (NEGATIVE) 03/22/17 19:00 Urine Urobilinogen Negative mg/dL (0.2-1.0) 03/22/17 19:00 Ur Leukocyte Esterase 1+ (NEGATIVE) H 03/22/17 19:00 Urine RBC 16 /hpf (0-3) 03/22/17 19:00 Urine WBC 82 /hpf (3-5) 03/22/17 19:00 Ur Epithelial Cells Rare /hpf (FEW) 03/22/17 19:00 Urine Bacteria Moderate /hpf (NONE SEEN) 03/22/17 19:00 RPR Titer Nonreactive (NONREACTIVE) 03/23/17 06:00 Assessment: 03/25/17 12:27 withdrawal symptom Plan: continue detox,discharge in am
[2017-03-25] MEDS: cloNIDine HCL 0.1 MG TABLET PO PRN (15:53)
[2017-03-25] MEDS: chlordiazePOXIDE HCL 10 MG CAPSULE PO SCH ×2 (17:23→22:13)
[2017-03-25] MEDS: THIAMINE HCL 100 MG TABLET (FP) PO SCH (22:14)
[2017-03-25] MEDS: ZOLPIDEM TARTRATE 5 MG TABLET PO PRN (22:15)
[2017-03-25] MEDS: ARIPiprazole 10 MG TABLET PO SCH (22:17)
[2017-03-26] MEDS: chlordiazePOXIDE HCL 10 MG CAPSULE PO SCH (05:47)
--- NOTE | 2017-03-26 09:00 | PN ---
S Progress Note Note: urine for c/s showed group d strep enterococcus patinet has been on bactrim ds 1 tab po bid
--- NOTE | 2017-03-26 09:05 | DS ---
[facility] Detox Discharge Summary Admission Date: 03/22/17 Discharge Date: 03/26/17 - History Present History: Alcohol Dependence Additional Comments: follow up with after care program as arrangement Pertinent Past History: essential hypertension ulcer of left forearm renal stones type 2 diabetes mellitus uti extropia left eye - Physical Exam Results Vital Signs: Vital Signs Temperature 97.2 F L 03/26/17 06:45 Pulse Rate 95 H 03/26/17 06:45 Respiratory Rate 18 03/26/17 06:45 Blood Pressure 142/88 03/26/17 06:45 O2 Sat by Pulse Oximetry (%) Pertinent Admission Physical Exam Findings: withdrawal symptom - Treatment Hospital Course: Detox Protocol Followed, Detoxed Safely, Responded well, Discharged Condition Good, Rehab Referral Accepted Patient has Accepted [facility] - Medication Discharge Medications: Ambulatory Orders Aripiprazole [Abilify -] 10 mg PO DAILY #30 tablet 01/26/17 Amlodipine Besylate [Norvasc -] 10 mg PO DAILY #30 tablet 01/30/17 Folic Acid - 1 mg PO DAILY 03/22/17 Multivitamins [Tab-A-Vit -] 1 tab PO DAILY 03/22/17 Aripiprazole [Abilify -] 10 mg PO DAILY #30 tablet 03/23/17 Bupropion HCl [Wellbutrin -] 100 mg PO BID #60 tablet 03/23/17 - Diagnosis (1) Alcohol dependence with uncomplicated withdrawal Current Visit: Yes Status: Acute (2) Insomnia secondary to depression with anxiety Current Visit: Yes Status: Acute (3) Skin ulcer of forearm Current Visit: No Status: Acute (4) Essential hypertension Current Visit: No Status: Chronic (5) Exotropia of left eye Current Visit: No Status: Chronic (6) HTN (hypertension) Current Visit: Yes Status: Chronic Qualifiers: Hypertension type: essential hypertension Qualified Code(s): I10 - Essential (primary) hypertension; I10 - Essential (primary) hypertension; I10 - Essential (primary) hypertension (7) History of coma Current Visit: No Status: Chronic (8) History of renal stone Current Visit: Yes Status: Chronic (9) Syncope Current Visit: No Status: Chronic Qualifiers: Syncope type: unspecified Qualified Code(s): R55 - Syncope and collapse; R55 - Syncope and collapse (10) Alcohol-induced mood disorder Current Visit: Yes Status: Acute (11) Alcohol-induced sleep disorder Current Visit: Yes Status: Acute (12) Depressive disorder Current Visit: Yes Status: Chronic (13) UTI (urinary tract infection) Current Visit: Yes Status: Acute - AMA Did Patient Leave Against Medical Advice: No
[2017-03-26] MEDS: SULFAMETHOXAZOLE/TRIMETHOPRIM 800MG/160MG D.S. TABLET PO SCH (10:16)
[2017-03-26] MEDS: PRENATAL VITAMINS W/ FOLIC ACID TABLET (FP) PO SCH (10:16)
[2017-03-26] MEDS: amLODIPine BESYLATE 10 MG TABLET (FP) PO SCH (10:16)
[2017-03-26] MEDS: buPROPion HCL 100 MG TABLET PO SCH (10:16)
[2017-03-26] MEDS: HYDROCORTISONE 1% TOPICAL CREAM 30 GM TUBE TP SCH (10:17)
[2017-03-26] MEDS: SILVER SULFADIAZINE 1% TOP CREAM 50 GM JAR TP SCH (10:18)
[2017-03-26 10:22] VITALS: BP 141/94; PULSE 101; TEMP 97.4
== END 2017-03-26 11:42 | disposition other institution (70) | DRG 897 ==
LOC: YASAS 10:21 → Y6N 13:44
PROVIDERS: ADMIT Internal Medicine; ATTEND Internal Medicine
PROC: HZ2ZZZZ Detoxification Services for Substance Abuse Treatment (ICD-10-PCS; principal; 2017-03-22)
DX: F10.230 Alcohol dependence with withdrawal, uncomplicated (principal); N39.0 Urinary tract infection, site not specified; F10.24 Alcohol dependence with alcohol-induced mood disorder; F10.282 Alcohol dependence with alcohol-induced sleep disorder; F34.1 Dysthymic disorder; F41.8 Other specified anxiety disorders; G47.00 Insomnia, unspecified; I10 Essential (primary) hypertension; E11.9 Type 2 diabetes mellitus without complications; L40.9 Psoriasis, unspecified; Z87.442 Personal history of urinary calculi; Z86.69 Personal history of other diseases of the nervous system and sense organs
CPT/HCPCS: 36415; 80053; 81003; 81015; 85027; 86593; 87086; 87186; 93005; 93010

== ENCOUNTER 2017-03-26 11:46 | Inpatient (IN) | payer OTHER ==
[2017-03-26] MEDS ORDERED: IBUPROFEN 400 MG TABLET (FP) PO PRN (12:40)
[2017-03-26] MEDS ORDERED: MAGNESIUM HYDROX 2400MG/30ML ORAL SUSPENSION 30 ML CUP PO PRN (12:40)
[2017-03-26] MEDS ORDERED: ACETAMINOPHEN 325 MG TABLET (FP) PO PRN (12:40)
[2017-03-26] MEDS ORDERED: guaiFENesin/D-METHORPHAN HB 10 ML UNIT-DOSE CUPS PO PRN (12:40)
[2017-03-26] MEDS ORDERED: P-EPHED 60MG/TRIPROLIDI 2.5MG TABLET PO PRN (12:40)
[2017-03-26] MEDS ORDERED: LOPERAMIDE HCL 2 MG CAPSULE PO PRN (12:40)
[2017-03-26] MEDS ORDERED: hydrOXYzine PAMOATE 50 MG CAPSULE (FP) PO PRN (12:40)
[2017-03-26] MEDS ORDERED: MAGNESIUM CITRATE 300 ML BOTTLE PO PRN (12:40)
[2017-03-26] MEDS ORDERED: MENTHOL/PHENOL 1 EACH UD MM PRN (12:40)
[2017-03-26] MEDS ORDERED: diphenhydrAMINE HCL 50 MG CAPSULE PO PRN (12:40)
[2017-03-26] MEDS ORDERED: MAG HYDROX/AL HYDROX/SIMETH 30 ML UNIT-DOSE CUP PO PRN (12:40)
--- NOTE | 2017-03-26 12:42 | HP ---
[facility] Rehab Assess/Revision - Admission History Admitted to Rehab from: [facility] Date of Admission to Rehab: 03/26/2017 - Vital signs Vital Signs: Vital Signs Period Temp Pulse Resp BP Sys/Dia Pulse Ox Last 24 Hr 98.4 F 110 18 138/82 - Findings Detox History & Physical reviewed: Yes Concur with findings: Yes Comments/Additional Findings: silvidine to wound on arm, continue bactrim Inpatient Rehab Admission - Initial Determination Are CD services needed?: Yes Free of communicable disease: Yes Not in need of hospitalization: Yes - Rehab Admission Criteria Comorbidities: Yes Patient is meeting Inpatient Rehab admission criteria:: Yes
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
[2017-03-26] MEDS: SULFAMETHOXAZOLE/TRIMETHOPRIM 800MG/160MG D.S. TABLET PO SCH (21:16)
[2017-03-26] MEDS: SUVOREXANT 10 MG TABLET PO PRN (21:19)
[2017-03-26] MEDS: SILVER SULFADIAZINE 1% TOP CREAM 50 GM JAR TP SCH (22:38)
[2017-03-26] MEDS: THIAMINE HCL 100 MG TABLET (FP) PO SCH (22:39)
[2017-03-26] MEDS: ARIPiprazole 10 MG TABLET PO SCH (22:39)
[2017-03-27] MEDS: SULFAMETHOXAZOLE/TRIMETHOPRIM 800MG/160MG D.S. TABLET PO SCH ×2 (10:08→21:45)
[2017-03-27] MEDS: SILVER SULFADIAZINE 1% TOP CREAM 50 GM JAR TP SCH ×2 (10:08→21:46)
[2017-03-27] MEDS: amLODIPine BESYLATE 10 MG TABLET (FP) PO SCH (10:08)
[2017-03-27] MEDS: PRENATAL VITAMINS W/ FOLIC ACID TABLET (FP) PO SCH (10:08)
[2017-03-27] MEDS: THIAMINE HCL 100 MG TABLET (FP) PO SCH (21:45)
[2017-03-27] MEDS: SUVOREXANT 10 MG TABLET PO PRN (21:45)
[2017-03-27] MEDS: ARIPiprazole 10 MG TABLET PO SCH (21:59)
[2017-03-28] MEDS: amLODIPine BESYLATE 10 MG TABLET (FP) PO SCH (10:04)
[2017-03-28] MEDS: SULFAMETHOXAZOLE/TRIMETHOPRIM 800MG/160MG D.S. TABLET PO SCH ×2 (10:04→21:14)
[2017-03-28] MEDS: PRENATAL VITAMINS W/ FOLIC ACID TABLET (FP) PO SCH (10:04)
[2017-03-28] MEDS: SILVER SULFADIAZINE 1% TOP CREAM 50 GM JAR TP SCH ×2 (10:06→21:14)
[2017-03-28] MEDS: ARIPiprazole 10 MG TABLET PO SCH (21:14)
[2017-03-28] MEDS: THIAMINE HCL 100 MG TABLET (FP) PO SCH (21:14)
[2017-03-28] MEDS: SUVOREXANT 10 MG TABLET PO PRN (21:14)
[2017-03-29] MEDS: amLODIPine BESYLATE 10 MG TABLET (FP) PO SCH (10:20)
[2017-03-29] MEDS: PRENATAL VITAMINS W/ FOLIC ACID TABLET (FP) PO SCH (10:20)
[2017-03-29] MEDS: SULFAMETHOXAZOLE/TRIMETHOPRIM 800MG/160MG D.S. TABLET PO SCH ×2 (10:20→22:16)
[2017-03-29] MEDS: HYDROCORTISONE 1% TOPICAL CREAM 30 GM TUBE TP PRN (10:21)
[2017-03-29] MEDS: SILVER SULFADIAZINE 1% TOP CREAM 50 GM JAR TP SCH ×2 (10:22→22:16)
[2017-03-29] MEDS: ARIPiprazole 10 MG TABLET PO SCH (22:16)
[2017-03-29] MEDS: THIAMINE HCL 100 MG TABLET (FP) PO SCH (22:16)
[2017-03-30] MEDS: amLODIPine BESYLATE 10 MG TABLET (FP) PO SCH (09:46)
[2017-03-30] MEDS: SILVER SULFADIAZINE 1% TOP CREAM 50 GM JAR TP SCH ×2 (09:46→21:55)
[2017-03-30] MEDS: PRENATAL VITAMINS W/ FOLIC ACID TABLET (FP) PO SCH (09:46)
[2017-03-30] MEDS: SULFAMETHOXAZOLE/TRIMETHOPRIM 800MG/160MG D.S. TABLET PO SCH ×2 (09:46→21:54)
[2017-03-30] MEDS: HYDROCORTISONE 1% TOPICAL CREAM 30 GM TUBE TP PRN (09:47)
[2017-03-30] MEDS: SUVOREXANT 10 MG TABLET PO PRN (21:54)
[2017-03-30] MEDS: ARIPiprazole 10 MG TABLET PO SCH (21:55)
[2017-03-30] MEDS: THIAMINE HCL 100 MG TABLET (FP) PO SCH (22:23)
[2017-03-31] MEDS: SULFAMETHOXAZOLE/TRIMETHOPRIM 800MG/160MG D.S. TABLET PO SCH ×2 (09:41→21:27)
[2017-03-31] MEDS: amLODIPine BESYLATE 10 MG TABLET (FP) PO SCH (09:41)
[2017-03-31] MEDS: SILVER SULFADIAZINE 1% TOP CREAM 50 GM JAR TP SCH ×2 (09:41→21:27)
[2017-03-31] MEDS: PRENATAL VITAMINS W/ FOLIC ACID TABLET (FP) PO SCH (09:41)
[2017-03-31] MEDS: THIAMINE HCL 100 MG TABLET (FP) PO SCH (21:28)
[2017-03-31] MEDS: SUVOREXANT 10 MG TABLET PO PRN (21:28)
[2017-03-31] MEDS: ARIPiprazole 10 MG TABLET PO SCH (21:28)
[2017-04-01] MEDS: amLODIPine BESYLATE 10 MG TABLET (FP) PO SCH (10:01)
[2017-04-01] MEDS: SULFAMETHOXAZOLE/TRIMETHOPRIM 800MG/160MG D.S. TABLET PO SCH ×2 (10:01→21:34)
[2017-04-01] MEDS: PRENATAL VITAMINS W/ FOLIC ACID TABLET (FP) PO SCH (10:01)
[2017-04-01] MEDS: SILVER SULFADIAZINE 1% TOP CREAM 50 GM JAR TP SCH ×2 (10:02→21:36)
[2017-04-01] MEDS: ARIPiprazole 10 MG TABLET PO SCH (21:34)
[2017-04-01] MEDS: THIAMINE HCL 100 MG TABLET (FP) PO SCH (21:34)
[2017-04-01] MEDS: SUVOREXANT 10 MG TABLET PO PRN (21:35)
[2017-04-02] MEDS: SILVER SULFADIAZINE 1% TOP CREAM 50 GM JAR TP SCH ×2 (09:57→21:03)
[2017-04-02] MEDS: amLODIPine BESYLATE 10 MG TABLET (FP) PO SCH (09:57)
[2017-04-02] MEDS: SULFAMETHOXAZOLE/TRIMETHOPRIM 800MG/160MG D.S. TABLET PO SCH ×2 (09:57→21:01)
[2017-04-02] MEDS: PRENATAL VITAMINS W/ FOLIC ACID TABLET (FP) PO SCH (09:57)
[2017-04-02] MEDS: ARIPiprazole 10 MG TABLET PO SCH (21:01)
[2017-04-02] MEDS: SUVOREXANT 10 MG TABLET PO PRN (21:02)
[2017-04-02] MEDS: THIAMINE HCL 100 MG TABLET (FP) PO SCH (21:04)
[2017-04-03] MEDS: SULFAMETHOXAZOLE/TRIMETHOPRIM 800MG/160MG D.S. TABLET PO SCH ×2 (09:58→21:35)
[2017-04-03] MEDS: PRENATAL VITAMINS W/ FOLIC ACID TABLET (FP) PO SCH (09:58)
[2017-04-03] MEDS: amLODIPine BESYLATE 10 MG TABLET (FP) PO SCH (09:58)
[2017-04-03] MEDS: SILVER SULFADIAZINE 1% TOP CREAM 50 GM JAR TP SCH ×2 (09:59→21:35)
[2017-04-03] MEDS: HYDROCORTISONE 1% TOPICAL CREAM 30 GM TUBE TP PRN (09:59)
[2017-04-03] MEDS: SUVOREXANT 10 MG TABLET PO PRN (21:34)
[2017-04-03] MEDS: THIAMINE HCL 100 MG TABLET (FP) PO SCH (21:34)
[2017-04-03] MEDS: ARIPiprazole 10 MG TABLET PO SCH (21:35)
[2017-04-04] MEDS: PRENATAL VITAMINS W/ FOLIC ACID TABLET (FP) PO SCH (10:09)
[2017-04-04] MEDS: amLODIPine BESYLATE 10 MG TABLET (FP) PO SCH (10:09)
[2017-04-04] MEDS: SULFAMETHOXAZOLE/TRIMETHOPRIM 800MG/160MG D.S. TABLET PO SCH ×2 (10:09→21:48)
[2017-04-04] MEDS: SILVER SULFADIAZINE 1% TOP CREAM 50 GM JAR TP SCH ×2 (10:12→21:48)
[2017-04-04] MEDS: THIAMINE HCL 100 MG TABLET (FP) PO SCH (21:48)
[2017-04-04] MEDS: ARIPiprazole 10 MG TABLET PO SCH (21:48)
[2017-04-04] MEDS: SUVOREXANT 10 MG TABLET PO PRN (22:06)
[2017-04-05] MEDS: SULFAMETHOXAZOLE/TRIMETHOPRIM 800MG/160MG D.S. TABLET PO SCH ×2 (09:46→21:36)
[2017-04-05] MEDS: amLODIPine BESYLATE 10 MG TABLET (FP) PO SCH (09:46)
[2017-04-05] MEDS: PRENATAL VITAMINS W/ FOLIC ACID TABLET (FP) PO SCH (09:46)
[2017-04-05] MEDS: HYDROCORTISONE 1% TOPICAL CREAM 30 GM TUBE TP PRN (09:47)
[2017-04-05] MEDS: SILVER SULFADIAZINE 1% TOP CREAM 50 GM JAR TP SCH ×2 (09:47→21:38)
[2017-04-05] MEDS: SUVOREXANT 10 MG TABLET PO PRN (21:36)
[2017-04-05] MEDS: THIAMINE HCL 100 MG TABLET (FP) PO SCH (21:36)
[2017-04-05] MEDS: ARIPiprazole 10 MG TABLET PO SCH (22:00)
[2017-04-06] MEDS: PRENATAL VITAMINS W/ FOLIC ACID TABLET (FP) PO SCH (09:58)
[2017-04-06] MEDS: SULFAMETHOXAZOLE/TRIMETHOPRIM 800MG/160MG D.S. TABLET PO SCH ×2 (09:58→21:36)
[2017-04-06] MEDS: amLODIPine BESYLATE 10 MG TABLET (FP) PO SCH (09:59)
[2017-04-06] MEDS: HYDROCORTISONE 1% TOPICAL CREAM 30 GM TUBE TP PRN (09:59)
[2017-04-06] MEDS: SILVER SULFADIAZINE 1% TOP CREAM 50 GM JAR TP SCH ×2 (10:00→21:37)
[2017-04-06] MEDS: THIAMINE HCL 100 MG TABLET (FP) PO SCH (21:36)
[2017-04-06] MEDS: SUVOREXANT 10 MG TABLET PO PRN (21:36)
[2017-04-06] MEDS: ARIPiprazole 10 MG TABLET PO SCH (22:13)
[2017-04-07] MEDS: SULFAMETHOXAZOLE/TRIMETHOPRIM 800MG/160MG D.S. TABLET PO SCH ×2 (09:50→21:19)
[2017-04-07] MEDS: amLODIPine BESYLATE 10 MG TABLET (FP) PO SCH (09:50)
[2017-04-07] MEDS: PRENATAL VITAMINS W/ FOLIC ACID TABLET (FP) PO SCH (09:50)
[2017-04-07] MEDS: HYDROCORTISONE 1% TOPICAL CREAM 30 GM TUBE TP PRN (09:51)
[2017-04-07] MEDS: SILVER SULFADIAZINE 1% TOP CREAM 50 GM JAR TP SCH ×2 (09:52→21:20)
[2017-04-07] MEDS: THIAMINE HCL 100 MG TABLET (FP) PO SCH (21:18)
[2017-04-07] MEDS: SUVOREXANT 10 MG TABLET PO PRN (21:19)
[2017-04-07] MEDS: ARIPiprazole 10 MG TABLET PO SCH (21:20)
[2017-04-08] MEDS: PRENATAL VITAMINS W/ FOLIC ACID TABLET (FP) PO SCH (09:38)
[2017-04-08] MEDS: SULFAMETHOXAZOLE/TRIMETHOPRIM 800MG/160MG D.S. TABLET PO SCH ×2 (09:38→21:13)
[2017-04-08] MEDS: amLODIPine BESYLATE 10 MG TABLET (FP) PO SCH (09:38)
[2017-04-08] MEDS: HYDROCORTISONE 1% TOPICAL CREAM 30 GM TUBE TP PRN (09:39)
[2017-04-08] MEDS: SILVER SULFADIAZINE 1% TOP CREAM 50 GM JAR TP SCH ×2 (09:39→21:13)
--- NOTE | 2017-04-08 10:29 | PN ---
Psychiatric Progress Note Vital Signs: Vital Signs Period Temp Pulse Resp BP Sys/Dia Pulse Ox Last 24 Hr 97.9 F 85 18 125/80 Date of Session: 04/08/17 Chief Complaint:: Discharge Note HPI: Patient addressing Alcohol Dependence comorbid with MDD, recurrent, severe without psychotic features, Alcohol-induced Mood Disorder and Alcohol-induced Sleep Disorder ROS: Type 2 DM, HTN, Psoriasis were medically managed Current Medications: Active Medications Generic Name Dose Route Start Last Admin Trade Name Freq PRN Reason Stop Dose Admin Acetaminophen 650 mg 03/26/17 12:40 Tylenol - PO Q4H PRN FEVER OR PAIN Al Hydroxide/Mg Hydroxide 30 ml 03/26/17 12:40 Mylanta Oral Suspension - PO Q6H PRN DYSPEPSIA Amlodipine Besylate 10 mg 03/27/17 10:00 04/08/17 09:38 Norvasc - PO 10 mg DAILY FERNANDA Administration Aripiprazole 10 mg 03/26/17 22:00 04/07/17 21:20 Abilify PO 10 mg HS FERNANDA Administration Bupropion HCl 150 mg 03/27/17 10:00 04/08/17 09:38 Wellbutrin Xl - PO 150 mg DAILY FERNANDA Administration Diphenhydramine HCl 50 mg 03/26/17 12:40 03/26/17 21:16 Benadryl - PO 50 mg HSMR1 PRN Administration FOR ITCHING Eucalyptus/Menthol/Phenol/Sorbitol 1 each 03/26/17 12:40 Cepastat Lozenge - MM Q4H PRN SORE THROAT Guaifenesin 10 ml 03/26/17 12:40 Robitussin Dm - PO Q6H PRN COUGH Hydrocortisone 1 applic 03/28/17 13:20 04/08/17 09:39 Hytone 1% Cream - TP 1 applic BID PRN Administration DRY SKIN Hydroxyzine Pamoate 50 mg 03/26/17 12:40 Vistaril - PO Q4H PRN AGITATION Ibuprofen 400 mg 03/26/17 12:40 Motrin - PO Q6H PRN PAIN Loperamide HCl 4 mg 03/26/17 12:40 Imodium - PO Q6H PRN DIARRHEA Magnesium Hydroxide 30 ml 03/26/17 12:40 04/04/17 10:10 Milk Of Magnesia - PO 30 ml DAILY PRN Administration CONSTIPATION Multivit/Folic Acid/Iron 1 tab 03/27/17 10:00 04/08/17 09:38 Vitamins (Sjr) - PO 1 tab DAILY FERNANDA Administration Pseudoephedrine/Triprolidine 1 combo 03/26/17 12:40 Actifed - PO TID PRN NASAL CONGESTION Silver Sulfadiazine 1 applic 03/26/17 22:00 04/08/17 09:39 Silvadene - TP 1 applic BID FERNANDA Administration Thiamine HCl 100 mg 03/26/17 22:00 04/07/17 21:18 Vitamin B1 - PO 100 mg HS FERNANDA Administration Trimethoprim/Sulfamethoxazole 1 each 03/26/17 22:00 04/08/17 09:38 Bactrim Ds - PO 1 each BID FERNANDA Administration Current Side Effect: No Lab tests ordered: Yes Lab tests reviewed: Yes Provider note:: Patient will complete this program on 04/09/17. He has met his treatment goals and will continue to address his issues in outpatient treatment at [facility]. He verbalized understanding of the negative consequences of his addiction and from his participation in this program, he has learned the importance of staying busy and occupying his time. He talked about going back to activities he used to do to occupy his time like: songs writing, exercising, bible reading. 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 He responded well to Abilify 10 mg po HS and Wellbutrin XL 150 mg po daily. Scrpits for 30 days supply of these medications will be electronically transmitted to [facility] at [address] [place] [address]. He is stable for discharge on 04/09/17 Total face to face time:: 35 Mental Status Exam - Mental Status Exam Alert and Oriented to: Time, Place, Person Cognitive Function: Fair Patient Appearance: Well Groomed Mood: Hopeful, Euthymic Affect: Appropriate Patient Behavior: Cooperative Speech Pattern: Clear Voice Loudness: Normal Thought Process: Intact, Goal Oriented Thought Disorder: Not Present Hallucinations: Denies Suicidal Ideation: Denies Homicidal Ideation: Denies Insight/Judgement: Fair Sleep: Fair Appetite: Good Muscle strength/Tone: Normal Gait/Station: Normal Psychiatric Treatment Plan - Problem List (1) Alcohol dependence Current Visit: No (2) MDD (major depressive disorder), recurrent severe, without psychosis Current Visit: Yes (3) Alcohol-induced mood disorder Current Visit: No (4) Alcohol-induced sleep disorder Current Visit: No (5) New onset type 2 diabetes mellitus Current Visit: No (6) Essential hypertension Current Visit: No (7) Exotropia of left eye Current Visit: No (8) HTN (hypertension) Current Visit: No Qualifiers: Hypertension type: essential hypertension Qualified Code(s): I10 - Essential (primary) hypertension; I10 - Essential (primary) hypertension; I10 - Essential (primary) hypertension (9) History of coma Current Visit: No (10) History of renal stone Current Visit: No (11) Psoriasis Current Visit: No Initial treatment plan: Patient will be discharged tomorrow and referred to [facility] for outpatient treatment.
--- NOTE | 2017-04-08 13:53 | PN ---
BHS Progress Note Note: history of dm diet control,will do bgm bid
[2017-04-08] MEDS: ARIPiprazole 10 MG TABLET PO SCH (21:13)
[2017-04-08] MEDS: THIAMINE HCL 100 MG TABLET (FP) PO SCH (21:13)
[2017-04-08] MEDS: SUVOREXANT 10 MG TABLET PO PRN (21:15)
[2017-04-09 06:53] VITALS: BP 128/85; PULSE 86; TEMP 97.6
[2017-04-09] MEDS: PRENATAL VITAMINS W/ FOLIC ACID TABLET (FP) PO SCH (09:41)
[2017-04-09] MEDS: SULFAMETHOXAZOLE/TRIMETHOPRIM 800MG/160MG D.S. TABLET PO SCH (09:41)
[2017-04-09] MEDS: amLODIPine BESYLATE 10 MG TABLET (FP) PO SCH (09:41)
[2017-04-09] MEDS: SILVER SULFADIAZINE 1% TOP CREAM 50 GM JAR TP SCH (09:42)
== END 2017-04-09 09:50 | disposition home or self-care (01) | DRG 895 ==
LOC: YASAS 11:46 → Y3W 11:47
PROVIDERS: ADMIT Psychiatry & Neurology Psychiatry; ATTEND Psychiatry & Neurology Psychiatry
PROC: HZ42ZZZ Group Counseling for Substance Abuse Treatment, Cognitive-Behavioral (ICD-10-PCS; principal; 2017-03-26)
DX: F10.230 Alcohol dependence with withdrawal, uncomplicated (principal); F33.2 Major depressive disorder, recurrent severe without psychotic features; F10.24 Alcohol dependence with alcohol-induced mood disorder; F10.282 Alcohol dependence with alcohol-induced sleep disorder; I10 Essential (primary) hypertension; E11.9 Type 2 diabetes mellitus without complications; H50.10 Unspecified exotropia; L40.9 Psoriasis, unspecified

== ENCOUNTER 2017-06-08 13:59 | Inpatient (IN) | payer OTHER ==
[2017-06-08 14:21] VITALS: BMI 35.2
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
[2017-06-08] MEDS ORDERED: MAGNESIUM HYDROX 2400MG/30ML ORAL SUSPENSION 30 ML CUP PO PRN (14:32)
[2017-06-08] MEDS ORDERED: IBUPROFEN 400 MG TABLET (FP) PO PRN (14:32)
[2017-06-08] MEDS ORDERED: ACETAMINOPHEN 325 MG TABLET (FP) PO PRN (14:32)
[2017-06-08] MEDS ORDERED: guaiFENesin/D-METHORPHAN HB 10 ML UNIT-DOSE CUPS PO PRN (14:32)
[2017-06-08] MEDS ORDERED: P-EPHED 60MG/TRIPROLIDI 2.5MG TABLET PO PRN (14:32)
[2017-06-08] MEDS ORDERED: MENTHOL/PHENOL 1 EACH UD MM PRN (14:32)
[2017-06-08] MEDS ORDERED: LOPERAMIDE HCL 2 MG CAPSULE PO PRN (14:32)
[2017-06-08] MEDS ORDERED: chlordiazePOXIDE HCL 25 MG CAPSULE PO ONE (14:32)
[2017-06-08] MEDS ORDERED: chlordiazePOXIDE HCL 25 MG CAPSULE PO PRN (14:32)
[2017-06-08] MEDS ORDERED: MAGNESIUM CITRATE 300 ML BOTTLE PO PRN (14:32)
[2017-06-08] MEDS ORDERED: COLLOIDAL OATMEAL 1 BAR EACH TP PRN (14:35)
[2017-06-08] MEDS ORDERED: HYDROCORTISONE 1% TOPICAL CREAM 30 GM TUBE TP PRN (14:36)
[2017-06-08] MEDS ORDERED: KETOCONAZOLE 2 % SHAMPOO 120 ML BOTTLE TP SCH (14:45)
[2017-06-08] MEDS: chlordiazePOXIDE HCL 25 MG CAPSULE PO SCH ×2 (17:13→22:21)
[2017-06-08] MEDS: hydrOXYzine PAMOATE 50 MG CAPSULE (FP) PO PRN ×2 (17:14→22:21)
[2017-06-08] MEDS ORDERED: SELENIUM SULFIDE 2.5% LOTION 4 OZ. TP PRN (17:52)
[2017-06-08 17:53] LABS: URINE APPEARANCE SLCLOUDY; URINE BILIRUBIN NEGATIVE (NEGATIVE); URINE BLOOD 1+ (NEGATIVE); URINE COLOR LTYELLOW; URINE GLUCOSE (UA) NEGATIVE (NEGATIVE); URINE KETONE NEGATIVE (NEGATIVE); URINE NITRITE NEGATIVE (NEGATIVE); URINE UROBILINOGEN NEGATIVE mg/dL (0.2-1.0)
[2017-06-08 17:54] LABS: URINE LEUK ESTERASE 3+ (NEGATIVE); URINE PROTEIN 1+ (NEGATIVE)
[2017-06-08 17:58] LABS: EPI CELLS RARE /HPF (FEW); URINE BACTERIA FEW /hpf (NONE SEEN); URINE MUCUS RARE
[2017-06-08] MEDS ORDERED: buPROPion HCL 100 MG TABLET PO SCH (22:00)
[2017-06-08] MEDS: ARIPiprazole 10 MG TABLET PO SCH (22:20)
[2017-06-08] MEDS: THIAMINE HCL 100 MG TABLET (FP) PO SCH (22:20)
[2017-06-08] MEDS: MAG HYDROX/AL HYDROX/SIMETH 30 ML UNIT-DOSE CUP PO PRN (22:23)
[2017-06-09] MEDS: chlordiazePOXIDE HCL 25 MG CAPSULE PO SCH ×4 (06:00→22:21)
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
[2017-06-09 10:03] LABS: HEMATOCRIT 37.6 % (35.4-49); HEMOGLOBIN 12.1 GM/dL (11.7-16.9); MCHC 32.1 g/dl (32.0-35.9); MEAN CELL VOLUME 90.3 fl (80-96); MEAN PLT VOLUME 9.4 fl (7.5-11.1); PLATELET COUNT 172 K/MM3 (134-434); RBC 4.17 M/mm3 (4.00-5.60); RDW 14.1 % (11.9-15.9); WHITE BLOOD COUNT 5.3 K/mm3 (4.0-10.0)
[2017-06-09] MEDS: PRENATAL VITAMINS W/ FOLIC ACID TABLET (FP) PO SCH (10:17)
[2017-06-09] MEDS: amLODIPine BESYLATE 10 MG TABLET (FP) PO SCH (10:17)
[2017-06-09 10:29] LABS: ALBUMIN 3.6 g/dl (3.4-5.0); ALK PHOS 82 U/L (45-117); ANION GAP 12 (8-16); BILIRUBIN,TOTAL 0.4 mg/dL (0.2-1.0); BLOOD UREA NITROGEN 16 mg/dL (7-18); CALCIUM 9.3 mg/dL (8.5-10.1); CHLORIDE 100 mmol/L (98-107); CO2 26 mmol/L (21-32); CREATININE 0.9 mg/dL (0.7-1.3); GLUCOSE,RANDOM 127 mg/dL (74-106); SGOT/AST 20 U/L (15-37); SGPT/ALT 30 U/L (12-78); SODIUM 138 mmol/L (136-145); TOT PROT 7.6 g/dl (6.4-8.2)
--- NOTE | 2017-06-09 10:33 | EKG ---
Test Reason : Blood Pressure : / mmHG Vent. Rate : 088 BPM Atrial Rate : 088 BPM P-R Int : 168 ms QRS Dur : 084 ms QT Int : 346 ms P-R-T Axes : 048 022 006 degrees QTc Int : 418 ms NORMAL SINUS RHYTHM NORMAL ECG WHEN COMPARED WITH ECG OF 22-MAR-2017 14:39, NO SIGNIFICANT CHANGE WAS FOUND Confirmed by IVÁN BOYD MD ([id number]) on 06/09/2017 10:33:08 AM Referred By: Dave Huddleston Confirmed By:IVÁN BOYD MD
--- NOTE | 2017-06-09 12:28 | PN ---
S CIWA - CIWA Score Nausea/Vomitin Muscle Tremors: 4-Moderate,w/Arms Extend Anxiety: 4-Mod. Anxious/Guarded Agitation: 4-Moderately Restless Paroxysmal Sweats: 3 Orientation: 0-Oriented Tacttile Disturbances: 1-Very Mild Itch/Numbness Auditory Disturbances: 0-None Visual Disturbances: 0-None Headache: 0-None Present CIWA-Ar Total Score: 19 BHS Progress Note (SOAP) Subjective: Tremor, chills, nausea, interrupted sleep Objective: 06/09/17 12:27 Last Vital Signs Temp Pulse Resp BP Pulse Ox 95.6 F L 87 19 142/102 06/09/17 09:04 06/09/17 09:04 06/09/17 09:04 06/09/17 09:04 b/p 142/102 (on htn med) Laboratory Tests 06/08/17 06/09/17 06/09/17 15:51 06:00 07:45 WBC 5.3 RBC 4.17 Hgb 12.1 Hct 37.6 MCV 90.3 MCH 29.0 MCHC 32.1 RDW 14.1 Plt Count 172 D MPV 9.4 Sodium Potassium Chloride Carbon Dioxide Anion Gap BUN Creatinine Creat Clearance w eGFR POC Glucometer 128 Random Glucose Calcium Total Bilirubin AST ALT Alkaline Phosphatase Total Protein Albumin Urine Color Ltyellow Urine Appearance Slcloudy Urine pH 5.0 Ur Specific [place] 1.018 Urine Protein 1+ H Urine Glucose (UA) Negative Urine Ketones Negative Urine Blood 1+ H Urine Nitrite Negative Urine Bilirubin Negative Urine Urobilinogen Negative Ur Leukocyte Esterase 1+ H Urine WBC (Auto) 95 Urine RBC (Auto) 13 Ur Epithelial Cells Rare Urine Bacteria Few Urine Mucus Rare 06/09/17 07:45 WBC RBC Hgb Hct MCV MCH MCHC RDW Plt Count MPV Sodium 138 Potassium 4.0 Chloride 100 Carbon Dioxide 26 Anion Gap 12 BUN 16 D Creatinine 0.9 Creat Clearance w eGFR > 60 POC Glucometer Random Glucose 127 H Calcium 9.3 Total Bilirubin 0.4 D AST 20 ALT 30 Alkaline Phosphatase 82 Total Protein 7.6 Albumin 3.6 Urine Color Urine Appearance Urine pH Ur Specific [place] Urine Protein Urine Glucose (UA) Urine Ketones Urine Blood Urine Nitrite Urine Bilirubin Urine Urobilinogen Ur Leukocyte Esterase Urine WBC (Auto) Urine RBC (Auto) Ur Epithelial Cells Urine Bacteria Urine Mucus Labs noted: abnormal UA Assessment: 06/09/17 12:28 Withdrawal symptoms Noted with abnormal UA and elevated b/p Plan: Continue detox Abnormal UA: encouraged to drink lots of water, repeat UA HTN: continue norvasc, encouraged low Na diet
[2017-06-09] MEDS: THIAMINE HCL 100 MG TABLET (FP) PO SCH (22:20)
[2017-06-09] MEDS: ARIPiprazole 10 MG TABLET PO SCH (22:20)
[2017-06-09] MEDS: traZODone HCL 100 MG TABLET (FP) PO SCH (22:21)
[2017-06-09] MEDS: MAG HYDROX/AL HYDROX/SIMETH 30 ML UNIT-DOSE CUP PO PRN (22:22)
[2017-06-10] MEDS: chlordiazePOXIDE HCL 25 MG CAPSULE PO SCH ×2 (05:23→10:16)
[2017-06-10] MEDS: amLODIPine BESYLATE 10 MG TABLET (FP) PO SCH (10:16)
[2017-06-10] MEDS: PRENATAL VITAMINS W/ FOLIC ACID TABLET (FP) PO SCH (10:16)
[2017-06-10 12:05] LABS: URINE APPEARANCE CLOUDY; URINE BILIRUBIN NEGATIVE (NEGATIVE); URINE BLOOD 1+ (NEGATIVE); URINE COLOR LTYELLOW; URINE GLUCOSE (UA) NEGATIVE (NEGATIVE); URINE KETONE NEGATIVE (NEGATIVE); URINE NITRITE NEGATIVE (NEGATIVE); URINE PROTEIN NEGATIVE (NEGATIVE); URINE UROBILINOGEN NEGATIVE mg/dL (0.2-1.0)
[2017-06-10 12:19] LABS: URINE LEUK ESTERASE 3+ (NEGATIVE)
--- NOTE | 2017-06-10 12:57 | PN ---
[facility] CIWA - CIWA Score Nausea/Vomitin-No Nausea/No Vomiting Muscle Tremors: 4-Moderate,w/Arms Extend Anxiety: 4-Mod. Anxious/Guarded Agitation: 4-Moderately Restless Paroxysmal Sweats: 1-Minimal Palms Moist Orientation: 0-Oriented Tacttile Disturbances: 3-Moderate Itch/Numb/Burn Auditory Disturbances: 0-None Visual Disturbances: 0-None Headache: 0-None Present CIWA-Ar Total Score: 16 BHS Progress Note (SOAP) Subjective: ANXIETY,SWEATS,TREMORS,FATIGUE. Objective: 06/10/17 12:56 Vital Signs Temperature 98.5 F 06/10/17 09:22 Pulse Rate 120 H 06/10/17 09:22 Respiratory Rate 20 06/10/17 09:22 Blood Pressure 127/87 06/10/17 09:22 O2 Sat by Pulse Oximetry (%) Laboratory Last Values WBC 5.3 K/mm3 (4.0-10.0) 06/09/17 07:45 RBC 4.17 M/mm3 (4.00-5.60) 06/09/17 07:45 Hgb 12.1 GM/dL (11.7-16.9) 06/09/17 07:45 Hct 37.6 % (35.4-49) 06/09/17 07:45 MCV 90.3 fl (80-96) 06/09/17 07:45 MCH 29.0 pg (25.7-33.7) 06/09/17 07:45 MCHC 32.1 g/dl (32.0-35.9) 06/09/17 07:45 RDW 14.1 % (11.9-15.9) 06/09/17 07:45 Plt Count 172 K/MM3 (134-434) D 06/09/17 07:45 MPV 9.4 fl (7.5-11.1) 06/09/17 07:45 Sodium 138 mmol/L (136-145) 06/09/17 07:45 Potassium 4.0 mmol/L (3.5-5.1) 06/09/17 07:45 Chloride 100 mmol/L (98-107) 06/09/17 07:45 Carbon Dioxide 26 mmol/L (21-32) 06/09/17 07:45 Anion Gap 12 (8-16) 06/09/17 07:45 BUN 16 mg/dL (7-18) D 06/09/17 07:45 Creatinine 0.9 mg/dL (0.7-1.3) 06/09/17 07:45 Creat Clearance w eGFR > 60 (>60) 06/09/17 07:45 POC Glucometer 140 UNITS (80-120) 06/10/17 05:22 Random Glucose 127 mg/dL (74-106) H 06/09/17 07:45 Calcium 9.3 mg/dL (8.5-10.1) 06/09/17 07:45 Total Bilirubin 0.4 mg/dL (0.2-1.0) D 06/09/17 07:45 AST 20 U/L (15-37) 06/09/17 07:45 ALT 30 U/L (12-78) 06/09/17 07:45 Alkaline Phosphatase 82 U/L (45-117) 06/09/17 07:45 Total Protein 7.6 g/dl (6.4-8.2) 06/09/17 07:45 Albumin 3.6 g/dl (3.4-5.0) 06/09/17 07:45 Urine Color Ltyellow 06/10/17 07:50 Urine Appearance Cloudy 06/10/17 07:50 Urine pH 5.0 (5.0-8.0) 06/10/17 07:50 Ur Specific [place] 1.016 (1.001-1.035) 06/10/17 07:50 Urine Protein Negative (NEGATIVE) 06/10/17 07:50 Urine Glucose (UA) Negative (NEGATIVE) 06/10/17 07:50 Urine Ketones Negative (NEGATIVE) 06/10/17 07:50 Urine Blood 1+ (NEGATIVE) H 06/10/17 07:50 Urine Nitrite Negative (NEGATIVE) 06/10/17 07:50 Urine Bilirubin Negative (NEGATIVE) 06/10/17 07:50 Urine Urobilinogen Negative mg/dL (0.2-1.0) 06/10/17 07:50 Ur Leukocyte Esterase 1+ (NEGATIVE) H 06/08/17 15:51 Urine WBC (Auto) 514 /hpf (3-5) 06/10/17 07:50 Urine RBC (Auto) 21 /hpf (0-3) 06/10/17 07:50 Ur Epithelial Cells Rare /HPF (FEW) 06/08/17 15:51 Urine Bacteria Few /hpf (NONE SEEN) 06/08/17 15:51 Urine Mucus Rare 06/08/17 15:51 RPR Titer Nonreactive (NONREACTIVE) 06/09/17 07:45 HIV 1&2 Antibody Screen Negative 06/09/17 07:45 HIV P24 Antigen Negative 06/09/17 07:45 REPEAT UA NOT IMPROVED UC TODAY Assessment: 06/10/17 13:01 WITHDRAWAL SX Plan: CONTINUE DETOX INCREASE PO FLUIDS. BACTRIM DS 1 TAB PO BID X 7 DAYS
[2017-06-10] MEDS: chlordiazePOXIDE 5 MG CAPSULE PO SCH ×2 (18:08→22:15)
[2017-06-10] MEDS: traZODone HCL 100 MG TABLET (FP) PO SCH (22:16)
[2017-06-10] MEDS: ARIPiprazole 10 MG TABLET PO SCH (22:16)
[2017-06-10] MEDS: THIAMINE HCL 100 MG TABLET (FP) PO SCH (22:16)
[2017-06-10] MEDS: SULFAMETHOXAZOLE/TRIMETHOPRIM 800MG/160MG D.S. TABLET PO SCH (22:16)
[2017-06-11] MEDS: chlordiazePOXIDE 5 MG CAPSULE PO SCH ×2 (05:14→10:09)
[2017-06-11] MEDS: SULFAMETHOXAZOLE/TRIMETHOPRIM 800MG/160MG D.S. TABLET PO SCH ×2 (10:10→22:23)
[2017-06-11] MEDS: PRENATAL VITAMINS W/ FOLIC ACID TABLET (FP) PO SCH (10:10)
[2017-06-11] MEDS: amLODIPine BESYLATE 10 MG TABLET (FP) PO SCH (10:10)
--- NOTE | 2017-06-11 11:20 | PN ---
BHS Progress Note (SOAP) Subjective: Anxious, Body Aches. Objective: PT. A & O X 3, OBSERVED AMBULATING ON UNIT. NO ACUTE DISTRESS. 06/11/17 11:19 Vital Signs Temperature 97.5 F L 06/11/17 09:43 Pulse Rate 113 H 06/11/17 09:43 Respiratory Rate 19 06/11/17 09:43 Blood Pressure 144/97 06/11/17 09:43 O2 Sat by Pulse Oximetry (%) Laboratory Tests 06/08/17 06/09/17 06/09/17 15:51 06:00 07:45 WBC 5.3 RBC 4.17 Hgb 12.1 Hct 37.6 MCV 90.3 MCH 29.0 MCHC 32.1 RDW 14.1 Plt Count 172 D MPV 9.4 Sodium Potassium Chloride Carbon Dioxide Anion Gap BUN Creatinine Creat Clearance w eGFR POC Glucometer 128 Random Glucose Calcium Total Bilirubin AST ALT Alkaline Phosphatase Total Protein Albumin Urine Color Ltyellow Urine Appearance Slcloudy Urine pH 5.0 Ur Specific [place] 1.018 Urine Protein 1+ H Urine Glucose (UA) Negative Urine Ketones Negative Urine Blood 1+ H Urine Nitrite Negative Urine Bilirubin Negative Urine Urobilinogen Negative Ur Leukocyte Esterase 1+ H Urine WBC (Auto) 95 Urine RBC (Auto) 13 Ur Epithelial Cells Rare Urine Bacteria Few Urine Mucus Rare RPR Titer HIV 1&2 Antibody Screen HIV P24 Antigen 06/09/17 06/09/17 06/09/17 07:45 07:45 07:45 WBC RBC Hgb Hct MCV MCH MCHC RDW Plt Count MPV Sodium 138 Potassium 4.0 Chloride 100 Carbon Dioxide 26 Anion Gap 12 BUN 16 D Creatinine 0.9 Creat Clearance w eGFR > 60 POC Glucometer Random Glucose 127 H Calcium 9.3 Total Bilirubin 0.4 D AST 20 ALT 30 Alkaline Phosphatase 82 Total Protein 7.6 Albumin 3.6 Urine Color Urine Appearance Urine pH Ur Specific [place] Urine Protein Urine Glucose (UA) Urine Ketones Urine Blood Urine Nitrite Urine Bilirubin Urine Urobilinogen Ur Leukocyte Esterase Urine WBC (Auto) Urine RBC (Auto) Ur Epithelial Cells Urine Bacteria Urine Mucus RPR Titer Nonreactive HIV 1&2 Antibody Screen Negative HIV P24 Antigen Negative 06/09/17 06/10/17 06/10/17 16:39 05:22 07:50 WBC RBC Hgb Hct MCV MCH MCHC RDW Plt Count MPV Sodium Potassium Chloride Carbon Dioxide Anion Gap BUN Creatinine Creat Clearance w eGFR POC Glucometer 148 140 Random Glucose Calcium Total Bilirubin AST ALT Alkaline Phosphatase Total Protein Albumin Urine Color Ltyellow Urine Appearance Cloudy Urine pH 5.0 Ur Specific [place] 1.016 Urine Protein Negative Urine Glucose (UA) Negative Urine Ketones Negative Urine Blood 1+ H Urine Nitrite Negative Urine Bilirubin Negative Urine Urobilinogen Negative Ur Leukocyte Esterase 3+ H D Urine WBC (Auto) 514 Urine RBC (Auto) 21 Ur Epithelial Cells Urine Bacteria Urine Mucus RPR Titer HIV 1&2 Antibody Screen HIV P24 Antigen 06/10/17 06/11/17 16:44 05:13 WBC RBC Hgb Hct MCV MCH MCHC RDW Plt Count MPV Sodium Potassium Chloride Carbon Dioxide Anion Gap BUN Creatinine Creat Clearance w eGFR POC Glucometer 195 166 Random Glucose Calcium Total Bilirubin AST ALT Alkaline Phosphatase Total Protein Albumin Urine Color Urine Appearance Urine pH Ur Specific [place] Urine Protein Urine Glucose (UA) Urine Ketones Urine Blood Urine Nitrite Urine Bilirubin Urine Urobilinogen Ur Leukocyte Esterase Urine WBC (Auto) Urine RBC (Auto) Ur Epithelial Cells Urine Bacteria Urine Mucus RPR Titer HIV 1&2 Antibody Screen HIV P24 Antigen LABS NOTED. URINE CULTURE RESULTS PENDING. 06/11/17 11:20 Assessment: 06/11/17 11:19 WITHDRAWAL SYMPTOMS. UTI. 06/11/17 11:20 Plan: CONTINUE DETOX. INCREASE DAILY PO FLUID INTAKE.
[2017-06-11] MEDS: chlordiazePOXIDE HCL 10 MG CAPSULE PO SCH ×2 (17:23→22:23)
[2017-06-11] MEDS: ARIPiprazole 10 MG TABLET PO SCH (22:23)
[2017-06-11] MEDS: THIAMINE HCL 100 MG TABLET (FP) PO SCH (22:23)
[2017-06-11] MEDS: traZODone HCL 100 MG TABLET (FP) PO SCH (22:23)
[2017-06-12] MEDS: MAG HYDROX/AL HYDROX/SIMETH 30 ML UNIT-DOSE CUP PO PRN (03:18)
[2017-06-12] MEDS: chlordiazePOXIDE HCL 10 MG CAPSULE PO SCH (05:40)
[2017-06-12 09:07] VITALS: BP 133/91; PULSE 99; TEMP 97.3
[2017-06-12] MEDS: SULFAMETHOXAZOLE/TRIMETHOPRIM 800MG/160MG D.S. TABLET PO SCH (10:45)
[2017-06-12] MEDS: amLODIPine BESYLATE 10 MG TABLET (FP) PO SCH (10:45)
[2017-06-12] MEDS: PRENATAL VITAMINS W/ FOLIC ACID TABLET (FP) PO SCH (10:46)
--- NOTE | 2017-06-12 15:02 | DS ---
[facility] Detox Discharge Summary Admission Date: 06/08/17 Discharge Date: 06/12/17 - History Present History: Alcohol Dependence, Cocaine Dependence Additional Comments: PATIENT GOING TO [facility] ([place], [place] FOR AFTERCARE. PRESCRIPTION FOR REMAINDER OF ANTIBIOTIC (BACTRIM DS) PRESCRIBED FOR PATIENT FOR POSSIBLE UTI WHILE ADMITTED FOR DETOX SENT TO PATIENT'S PHARMACY ( [facility], [place], [place] FOR FOLLOW-UP CARE. PATIENT WAS DISCHARGED FROM DETOX UNIT IN STABLE MEDICAL CONDITION. Pertinent Past History: History of Seizures, HTN, Exotropia of Left Eye, HTN, Type II DM, Depression, Psoriasis, History of Coma, Schizophrenia, History of Renal Stone. - Physical Exam Results Vital Signs: Vital Signs Temperature 97.3 F L 06/12/17 09:06 Pulse Rate 99 H 06/12/17 09:06 Respiratory Rate 20 06/12/17 09:06 Blood Pressure 133/91 06/12/17 09:06 O2 Sat by Pulse Oximetry (%) Pertinent Admission Physical Exam Findings: WITHDRAWAL SYMPTOMS. Laboratory Tests 06/08/17 06/09/17 06/09/17 15:51 06:00 07:45 WBC 5.3 RBC 4.17 Hgb 12.1 Hct 37.6 MCV 90.3 MCH 29.0 MCHC 32.1 RDW 14.1 Plt Count 172 D MPV 9.4 Sodium Potassium Chloride Carbon Dioxide Anion Gap BUN Creatinine Creat Clearance w eGFR POC Glucometer 128 Random Glucose Calcium Total Bilirubin AST ALT Alkaline Phosphatase Total Protein Albumin Urine Color Ltyellow Urine Appearance Slcloudy Urine pH 5.0 Ur Specific [place] 1.018 Urine Protein 1+ H Urine Glucose (UA) Negative Urine Ketones Negative Urine Blood 1+ H Urine Nitrite Negative Urine Bilirubin Negative Urine Urobilinogen Negative Ur Leukocyte Esterase 1+ H Urine WBC (Auto) 95 Urine RBC (Auto) 13 Ur Epithelial Cells Rare Urine Bacteria Few Urine Mucus Rare RPR Titer HIV 1&2 Antibody Screen HIV P24 Antigen 06/09/17 06/09/17 06/09/17 07:45 07:45 07:45 WBC RBC Hgb Hct MCV MCH MCHC RDW Plt Count MPV Sodium 138 Potassium 4.0 Chloride 100 Carbon Dioxide 26 Anion Gap 12 BUN 16 D Creatinine 0.9 Creat Clearance w eGFR > 60 POC Glucometer Random Glucose 127 H Calcium 9.3 Total Bilirubin 0.4 D AST 20 ALT 30 Alkaline Phosphatase 82 Total Protein 7.6 Albumin 3.6 Urine Color Urine Appearance Urine pH Ur Specific [place] Urine Protein Urine Glucose (UA) Urine Ketones Urine Blood Urine Nitrite Urine Bilirubin Urine Urobilinogen Ur Leukocyte Esterase Urine WBC (Auto) Urine RBC (Auto) Ur Epithelial Cells Urine Bacteria Urine Mucus RPR Titer Nonreactive HIV 1&2 Antibody Screen Negative HIV P24 Antigen Negative 06/09/17 06/10/17 06/10/17 16:39 05:22 07:50 WBC RBC Hgb Hct MCV MCH MCHC RDW Plt Count MPV Sodium Potassium Chloride Carbon Dioxide Anion Gap BUN Creatinine Creat Clearance w eGFR POC Glucometer 148 140 Random Glucose Calcium Total Bilirubin AST ALT Alkaline Phosphatase Total Protein Albumin Urine Color Ltyellow Urine Appearance Cloudy Urine pH 5.0 Ur Specific [place] 1.016 Urine Protein Negative Urine Glucose (UA) Negative Urine Ketones Negative Urine Blood 1+ H Urine Nitrite Negative Urine Bilirubin Negative Urine Urobilinogen Negative Ur Leukocyte Esterase 3+ H D Urine WBC (Auto) 514 Urine RBC (Auto) 21 Ur Epithelial Cells Urine Bacteria Urine Mucus RPR Titer HIV 1&2 Antibody Screen HIV P24 Antigen 06/10/17 06/11/17 06/11/17 16:44 05:13 16:21 WBC RBC Hgb Hct MCV MCH MCHC RDW Plt Count MPV Sodium Potassium Chloride Carbon Dioxide Anion Gap BUN Creatinine Creat Clearance w eGFR POC Glucometer 195 166 228 Random Glucose Calcium Total Bilirubin AST ALT Alkaline Phosphatase Total Protein Albumin Urine Color Urine Appearance Urine pH Ur Specific [place] Urine Protein Urine Glucose (UA) Urine Ketones Urine Blood Urine Nitrite Urine Bilirubin Urine Urobilinogen Ur Leukocyte Esterase Urine WBC (Auto) Urine RBC (Auto) Ur Epithelial Cells Urine Bacteria Urine Mucus RPR Titer HIV 1&2 Antibody Screen HIV P24 Antigen 06/12/17 05:39 WBC RBC Hgb Hct MCV MCH MCHC RDW Plt Count MPV Sodium Potassium Chloride Carbon Dioxide Anion Gap BUN Creatinine Creat Clearance w eGFR POC Glucometer 176 Random Glucose Calcium Total Bilirubin AST ALT Alkaline Phosphatase Total Protein Albumin Urine Color Urine Appearance Urine pH Ur Specific [place] Urine Protein Urine Glucose (UA) Urine Ketones Urine Blood Urine Nitrite Urine Bilirubin Urine Urobilinogen Ur Leukocyte Esterase Urine WBC (Auto) Urine RBC (Auto) Ur Epithelial Cells Urine Bacteria Urine Mucus RPR Titer HIV 1&2 Antibody Screen HIV P24 Antigen LABS NOTED. - Treatment Hospital Course: Detox Protocol Followed, Detoxed Safely, Responded well, Discharged Condition Good Patient has Accepted a Rehab Referral to: PT GOING TO [facility] ([place], [place] - Medication Discharge Medications: Ambulatory Orders Folic Acid - 1 mg PO DAILY 03/22/17 Multivitamins [Tab-A-Vit -] 1 tab PO DAILY 03/22/17 Bupropion HCl [Wellbutrin -] 100 mg PO BID #60 tablet 03/23/17 Amlodipine Besylate [Norvasc -] 10 mg PO DAILY #30 tablet 04/09/17 Aripiprazole [Abilify -] 10 mg PO HS #30 mg 06/09/17 Bupropion HCl [Wellbutrin Xl -] 150 mg PO DAILY #30 tab.sr.24h 06/09/17 Trazodone HCl [Desyrel -] 100 mg PO HS #30 tablet 06/09/17 Sulfamethoxazole/Trimethoprim [Bactrim Ds -] 1 tab PO BID 7 Days #14 tablet 08/25 - Diagnosis (1) Alcohol dependence with uncomplicated withdrawal Status: Acute (2) Cocaine dependence Status: Acute Qualifiers: Substance use status: uncomplicated Qualified Code(s): F14.20 - Cocaine dependence, uncomplicated (3) UTI (urinary tract infection) Status: Acute Qualifiers: Urinary tract infection type: site unspecified Hematuria presence: without hematuria Qualified Code(s): N39.0 - Urinary tract infection, site not specified (4) Diabetes mellitus type 2, diet-controlled Status: Chronic (5) Alcohol related seizure Status: Suspected (6) History of coma Status: Inactive (7) History of renal stone Status: Chronic (8) HTN (hypertension) Status: Chronic Qualifiers: Hypertension type: essential hypertension Qualified Code(s): I10 - Essential (primary) hypertension (9) Psoriasis Status: Chronic (10) Substance induced mood disorder Status: Acute (11) Substance-induced sleep disorder Status: Acute - AMA Did Patient Leave Against Medical Advice: No
== END 2017-06-12 10:48 | disposition home or self-care (01) | DRG 897 ==
LOC: YASAS 13:59 → Y3N 15:08
PROVIDERS: ADMIT Internal Medicine; ATTEND Internal Medicine
PROC: HZ2ZZZZ Detoxification Services for Substance Abuse Treatment (ICD-10-PCS; principal; 2017-06-08)
DX: F10.230 Alcohol dependence with withdrawal, uncomplicated (principal); F14.20 Cocaine dependence, uncomplicated; F19.282 Other psychoactive substance dependence with psychoactive substance-induced sleep disorder; F33.3 Major depressive disorder, recurrent, severe with psychotic symptoms; N39.0 Urinary tract infection, site not specified; F19.24 Other psychoactive substance dependence with psychoactive substance-induced mood disorder; F41.9 Anxiety disorder, unspecified; F20.9 Schizophrenia, unspecified; I10 Essential (primary) hypertension; E11.9 Type 2 diabetes mellitus without complications; L40.9 Psoriasis, unspecified; G47.00 Insomnia, unspecified; H50.10 Unspecified exotropia; E66.9 Obesity, unspecified; Z68.35 Body mass index [BMI] 35.0-35.9, adult; Z87.438 Personal history of other diseases of male genital organs; Z86.69 Personal history of other diseases of the nervous system and sense organs; Z87.442 Personal history of urinary calculi; Z91.018 Allergy to other foods; Z87.891 Personal history of nicotine dependence
CPT/HCPCS: 36415; 80053; 81003; 81015; 85027; 86593; 87389; 93005; 93010

== ENCOUNTER 2017-09-08 11:01 | Inpatient (IN) | payer OTHER ==
[2017-09-08 11:11] VITALS: BMI 35.8
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
[2017-09-08] MEDS ORDERED: MAG HYDROX/AL HYDROX/SIMETH 30 ML UNIT-DOSE CUP PO PRN (13:18)
[2017-09-08] MEDS ORDERED: MAGNESIUM HYDROX 2400MG/30ML ORAL SUSPENSION 30 ML CUP PO PRN (13:18)
[2017-09-08] MEDS ORDERED: guaiFENesin/D-METHORPHAN HB 10 ML UNIT-DOSE CUPS PO PRN (13:18)
[2017-09-08] MEDS ORDERED: ACETAMINOPHEN 325 MG TABLET (FP) PO PRN (13:18)
[2017-09-08] MEDS ORDERED: MAGNESIUM CITRATE 300 ML BOTTLE PO PRN (13:18)
[2017-09-08] MEDS ORDERED: P-EPHED 60MG/TRIPROLIDI 2.5MG TABLET PO PRN (13:18)
[2017-09-08] MEDS ORDERED: LOPERAMIDE HCL 2 MG CAPSULE PO PRN (13:18)
[2017-09-08] MEDS ORDERED: chlordiazePOXIDE HCL 25 MG CAPSULE PO PRN (13:18)
[2017-09-08] MEDS ORDERED: MENTHOL/PHENOL 1 EACH UD MM PRN (13:18)
[2017-09-08] MEDS ORDERED: IBUPROFEN 400 MG TABLET (FP) PO PRN (13:18)
[2017-09-08] MEDS ORDERED: chlordiazePOXIDE HCL 25 MG CAPSULE PO ONE (13:18)
[2017-09-08] MEDS: chlordiazePOXIDE HCL 25 MG CAPSULE PO SCH ×3 (16:36→22:32)
[2017-09-08 17:24] LABS: URINE APPEARANCE CLOUDY; URINE BILIRUBIN NEGATIVE (<2.0 mg/dL); URINE BLOOD 2+ (NEGATIVE); URINE COLOR YELLOW; URINE GLUCOSE (UA) NEGATIVE (NEGATIVE); URINE KETONE NEGATIVE (NEGATIVE); URINE NITRITE NEGATIVE (NEGATIVE); URINE UROBILINOGEN NEGATIVE mg/dL (0.2-1.0)
[2017-09-08 17:36] LABS: URINE LEUK ESTERASE 3+ (NEGATIVE); URINE PROTEIN 2+ (NEGATIVE)
[2017-09-08 17:38] LABS: EPI CELLS RARE /HPF (FEW); URINE BACTERIA RARE /hpf (NONE SEEN); URINE HYALINE CAST 5 /lpf; URINE MUCUS RARE
[2017-09-08] MEDS ORDERED: chlordiazePOXIDE HCL 25 MG CAPSULE ONE (17:41)
[2017-09-08] MEDS ORDERED: MELATONIN 5 MG TABLETS PO PRN (22:00)
[2017-09-08] MEDS: THIAMINE HCL 100 MG TABLET (FP) PO SCH (22:32)
[2017-09-09] MEDS: chlordiazePOXIDE HCL 25 MG CAPSULE PO SCH ×4 (05:20→22:35)
[2017-09-09 09:58] LABS: HEMATOCRIT 39.1 % (35.4-49); MCH 29.5 pg (25.7-33.7); MCHC 33.1 g/dl (32.0-35.9); MEAN CELL VOLUME 88.9 fl (80-96); MEAN PLT VOLUME 8.4 fl (7.5-11.1); PLATELET COUNT 292 K/MM3 (134-434); RDW 15.3 % (11.9-15.9); WHITE BLOOD COUNT 5.8 K/mm3 (4.0-10.0)
[2017-09-09] MEDS: PRENATAL VITAMINS W/ FOLIC ACID TABLET (FP) PO SCH (10:22)
[2017-09-09] MEDS: hydrOXYzine PAMOATE 25 MG CAPSULE (FP) PO PRN (10:24)
[2017-09-09 10:30] LABS: CHLORIDE 99 mmol/L (98-107); POTASSIUM 4.2 mmol/L (3.5-5.1); SODIUM 135 mmol/L (136-145)
[2017-09-09 10:41] LABS: ALBUMIN 3.8 g/dl (3.4-5.0); ALK PHOS 97 U/L (45-117); ANION GAP 8 (8-16); BILIRUBIN,TOTAL 0.4 mg/dL (0.2-1.0); BLOOD UREA NITROGEN 14 mg/dL (7-18); CALCIUM 8.8 mg/dL (8.5-10.1); CO2 28 mmol/L (21-32); CREATININE 0.8 mg/dL (0.7-1.3); GLUCOSE,RANDOM 157 mg/dL (74-106); SGOT/AST 17 U/L (15-37); SGPT/ALT 29 U/L (12-78); TOT PROT 7.6 g/dl (6.4-8.2)
--- NOTE | 2017-09-09 11:29 | EKG ---
Test Reason : Blood Pressure : / mmHG Vent. Rate : 092 BPM Atrial Rate : 092 BPM P-R Int : 160 ms QRS Dur : 076 ms QT Int : 340 ms P-R-T Axes : 056 022 014 degrees QTc Int : 420 ms NORMAL SINUS RHYTHM NORMAL ECG WHEN COMPARED WITH ECG OF 08-JUN-2017 18:19, NO SIGNIFICANT CHANGE WAS FOUND Confirmed by BELÉN KIDD MD ([id number]) on 09/09/2017 11:29:14 AM Referred By: Confirmed By:BELÉN KIDD MD
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
[2017-09-09] MEDS: NAPROXEN 250 MG TABLET (FP) PO SCH ×2 (14:24→22:35)
--- NOTE | 2017-09-09 14:44 | PN ---
[facility] CIWA - CIWA Score Nausea/Vomitin-No Nausea/No Vomiting Muscle Tremors: None Anxiety: 4-Mod. Anxious/Guarded Agitation: 3 Paroxysmal Sweats: 3 Orientation: 2-Disoriented Date<2 days Tacttile Disturbances: 3-Moderate Itch/Numb/Burn Auditory Disturbances: 0-None Visual Disturbances: 2-Mild Sensitivity Headache: 0-None Present CIWA-Ar Total Score: 17 BHS Progress Note (SOAP) Subjective: Fatigue, Body Aches, Anxious. Objective: PATIENT A & O X 2 (UNCERTAIN ABOUT CURRENT DAY / DATE). PATIENT OBSERVED AMBULATING ON UNIT. NO ACUTE DISTRESS. PATIENT DENIES ANY UNUSUAL URINARY SYMPTOMS (BURNING, PAIN, FREQUENCY, URGENCY). 09/09/17 14:39 Vital Signs Temperature 98.7 F 09/09/17 13:18 Pulse Rate 85 09/09/17 13:18 Respiratory Rate 16 09/09/17 13:18 Blood Pressure 123/81 09/09/17 13:18 O2 Sat by Pulse Oximetry (%) Laboratory Tests 09/08/17 09/08/17 09/09/17 16:18 Unknown 05:20 WBC RBC Hgb Hct MCV MCH MCHC RDW Plt Count MPV Sodium Potassium Chloride Carbon Dioxide Anion Gap BUN Creatinine Creat Clearance w eGFR POC Glucometer 178 179 Random Glucose Calcium Total Bilirubin AST ALT Alkaline Phosphatase Total Protein Albumin Urine Color Yellow Urine Appearance Cloudy Urine pH 5.0 Ur Specific [place] 1.018 Urine Protein 2+ H Urine Glucose (UA) Negative Urine Ketones Negative Urine Blood 2+ H Urine Nitrite Negative Urine Bilirubin Negative Urine Urobilinogen Negative Ur Leukocyte Esterase 3+ H Urine WBC (Auto) 1055 Urine RBC (Auto) 72 Ur Epithelial Cells Rare Urine Bacteria Rare Hyaline Casts 5 Urine Mucus Rare RPR Titer 09/09/17 09/09/17 09/09/17 07:45 07:45 07:45 WBC 5.8 RBC 4.40 Hgb 13.0 Hct 39.1 MCV 88.9 MCH 29.5 MCHC 33.1 RDW 15.3 Plt Count 292 D MPV 8.4 D Sodium 135 L Potassium 4.2 Chloride 99 Carbon Dioxide 28 Anion Gap 8 BUN 14 Creatinine 0.8 Creat Clearance w eGFR > 60 POC Glucometer Random Glucose 157 H D Calcium 8.8 Total Bilirubin 0.4 AST 17 ALT 29 Alkaline Phosphatase 97 Total Protein 7.6 Albumin 3.8 Urine Color Urine Appearance Urine pH Ur Specific [place] Urine Protein Urine Glucose (UA) Urine Ketones Urine Blood Urine Nitrite Urine Bilirubin Urine Urobilinogen Ur Leukocyte Esterase Urine WBC (Auto) Urine RBC (Auto) Ur Epithelial Cells Urine Bacteria Hyaline Casts Urine Mucus RPR Titer Nonreactive LABS NOTED. 09/09/17 15:42 Assessment: 09/09/17 14:40 WITHDRAWAL SYMPTOMS. Plan: CONTINUE DETOX. PATIENT REPORTING PAIN AND DIFFICULTY IN FLEXION OF PINKY FINGER OF RIGHT HAND. PATIENT REPORTS THAT HE HIT A WALL WITH HIS HAND "A FEW WEEKS AGO." PATIENT DENIES SEEKING OUTSIDE MEDICAL ATTENTION FOR THIS MATTER PRIOR TO ADMISSION TO DETOX. X-RAY OF RIGHT HAND ORDERED. NAPROXEN 250 MG PO BID ORDERED FOR PAIN OF RIGHT HAND. REPEAT UA WITH URINE C + S FOR ADMISSION US ABNORMALITIES.
[2017-09-09] MEDS ORDERED: ALBUTEROL SO4 2.5/IPRATROPIUM 0.5 INH SOL 3 ML VIAL.NEB. NEB PRN (16:28)
--- NOTE | 2017-09-09 16:29 | PN ---
BHS Progress Note Note: Patient c/o of mild SOB. Vital Signs Temperature 98.7 F 09/09/17 13:18 Pulse Rate 85 09/09/17 13:18 Respiratory Rate 16 09/09/17 13:18 Blood Pressure 123/81 09/09/17 13:18 O2 Sat by Pulse Oximetry (%) Nebulizer order Continue to monitor
[2017-09-09 20:21] LABS: URINE APPEARANCE CLOUDY; URINE BILIRUBIN NEGATIVE (<2.0 mg/dL); URINE BLOOD 1+ (NEGATIVE); URINE COLOR YELLOW; URINE GLUCOSE (UA) 2+ (NEGATIVE); URINE KETONE NEGATIVE (NEGATIVE); URINE NITRITE NEGATIVE (NEGATIVE); URINE UROBILINOGEN NEGATIVE mg/dL (0.2-1.0)
[2017-09-09 20:24] LABS: URINE LEUK ESTERASE 3+ (NEGATIVE); URINE PROTEIN 1+ (NEGATIVE)
[2017-09-09 20:28] LABS: EPI CELLS RARE /HPF (FEW); URINE BACTERIA MODERATE /hpf (NONE SEEN); URINE MUCUS RARE
[2017-09-09] MEDS: ARIPiprazole 10 MG TABLET PO SCH (22:35)
[2017-09-09] MEDS: THIAMINE HCL 100 MG TABLET (FP) PO SCH (22:35)
[2017-09-09] MEDS: traZODone HCL 100 MG TABLET (FP) PO SCH (22:36)
[2017-09-10] MEDS: chlordiazePOXIDE HCL 25 MG CAPSULE PO SCH ×2 (05:38→10:11)
[2017-09-10] MEDS: NAPROXEN 250 MG TABLET (FP) PO SCH ×2 (09:09→22:26)
[2017-09-10] MEDS: hydrOXYzine PAMOATE 25 MG CAPSULE (FP) PO PRN (10:09)
[2017-09-10] MEDS: PRENATAL VITAMINS W/ FOLIC ACID TABLET (FP) PO SCH (10:09)
--- NOTE | 2017-09-10 10:52 | PN ---
[facility] CIWA - CIWA Score Nausea/Vomitin-No Nausea/No Vomiting Muscle Tremors: 4-Moderate,w/Arms Extend Anxiety: 4-Mod. Anxious/Guarded Agitation: 4-Moderately Restless Paroxysmal Sweats: 1-Minimal Palms Moist Orientation: 0-Oriented Tacttile Disturbances: 0-None Auditory Disturbances: 0-None Visual Disturbances: 0-None Headache: 0-None Present CIWA-Ar Total Score: 13 BHS Progress Note (SOAP) Subjective: SLIGHT TREMORS, ANXIETY,SWEATS,OOB WITH STEADY GAIT. REPORTS HX OF PREVIOUS UTI BUT DENIES TREATMENT. Objective: 09/10/17 10:49 Vital Signs Temperature 95.5 F L 09/10/17 09:11 Pulse Rate 111 H 09/10/17 09:11 Respiratory Rate 20 09/10/17 09:11 Blood Pressure 150/99 09/10/17 09:11 O2 Sat by Pulse Oximetry (%) Laboratory Last Values WBC 5.8 K/mm3 (4.0-10.0) 09/09/17 07:45 RBC 4.40 M/mm3 (4.00-5.60) 09/09/17 07:45 Hgb 13.0 GM/dL (11.7-16.9) 09/09/17 07:45 Hct 39.1 % (35.4-49) 09/09/17 07:45 MCV 88.9 fl (80-96) 09/09/17 07:45 MCH 29.5 pg (25.7-33.7) 09/09/17 07:45 MCHC 33.1 g/dl (32.0-35.9) 09/09/17 07:45 RDW 15.3 % (11.9-15.9) 09/09/17 07:45 Plt Count 292 K/MM3 (134-434) D 09/09/17 07:45 MPV 8.4 fl (7.5-11.1) D 09/09/17 07:45 Sodium 135 mmol/L (136-145) L 09/09/17 07:45 Potassium 4.2 mmol/L (3.5-5.1) 09/09/17 07:45 Chloride 99 mmol/L (98-107) 09/09/17 07:45 Carbon Dioxide 28 mmol/L (21-32) 09/09/17 07:45 Anion Gap 8 (8-16) 09/09/17 07:45 BUN 14 mg/dL (7-18) 09/09/17 07:45 Creatinine 0.8 mg/dL (0.7-1.3) 09/09/17 07:45 Creat Clearance w eGFR > 60 (>60) 09/09/17 07:45 POC Glucometer 175 UNITS (80-120) 09/10/17 05:38 Random Glucose 157 mg/dL (74-106) H D 09/09/17 07:45 Calcium 8.8 mg/dL (8.5-10.1) 09/09/17 07:45 Total Bilirubin 0.4 mg/dL (0.2-1.0) 09/09/17 07:45 AST 17 U/L (15-37) 09/09/17 07:45 ALT 29 U/L (12-78) 09/09/17 07:45 Alkaline Phosphatase 97 U/L (45-117) 09/09/17 07:45 Total Protein 7.6 g/dl (6.4-8.2) 09/09/17 07:45 Albumin 3.8 g/dl (3.4-5.0) 09/09/17 07:45 Urine Color Yellow 09/09/17 17:30 Urine Appearance Cloudy 09/09/17 17:30 Urine pH 5.0 (5.0-8.0) 09/09/17 17:[address] [place] 1.018 (1.001-1.035) 09/09/17 17:30 Urine Protein 1+ (NEGATIVE) H 09/09/17 17:30 Urine Glucose (UA) 2+ (NEGATIVE) H 09/09/17 17:30 Urine Ketones Negative (NEGATIVE) 09/09/17 17:30 Urine Blood 1+ (NEGATIVE) H 09/09/17 17:30 Urine Nitrite Negative (NEGATIVE) 09/09/17 17:30 Urine Bilirubin Negative (<2.0 mg/dL) 09/09/17 17:30 Urine Urobilinogen Negative mg/dL (0.2-1.0) 09/09/17 17:30 Ur Leukocyte Esterase 3+ (NEGATIVE) H 09/09/17 17:30 Urine WBC (Auto) 1556 /hpf (3-5) 09/09/17 17:30 Urine RBC (Auto) 112 /hpf (0-3) 09/09/17 17:30 Ur Epithelial Cells Rare /HPF (FEW) 09/09/17 17:30 Urine Bacteria Moderate /hpf (NONE SEEN) 09/09/17 17:30 Hyaline Casts 5 /lpf 09/08/17 Unknown Urine Mucus Rare 09/09/17 17:30 RPR Titer Nonreactive (NONREACTIVE) 09/09/17 07:45 UA NOTED ABNORMAL; NOT IMPROVED FROM PREVIOUS TEST UC PENDING DENIES BURNING,TINGLING OR PAIN XRAY: RIGHT FIFTH METACARPAL FRACTURE RESULT DISCUSSED WITH PATIENT. PT REPORTS INJURY SUSTAINED A "FEW WEEKS AGO... PUNCHED THE WALL". DENIES GOING TO ER FOR CARE. Assessment: 09/10/17 10:57 WITHDRAWAL SX RIGHT FIFTH METACARPAL FRACTURE R/O UTI Plan: CONTINUE DETOX BACTRIM DS 1 TAB PO BID X 3 DAYS SPLINT TO RIGHT FIFTH FINGER. PT INSTRUCTED TO FOLLOW UP WITH PRIMARY CARE OR [facility] IF NEEDED FOR FURTHER CARE AFTER DETOX.
[2017-09-10] MEDS ORDERED: SULFAMETHOXAZOLE/TRIMETHOPRIM 800MG/160MG D.S. TABLET PO ONE (12:00)
[2017-09-10] MEDS: amLODIPine BESYLATE 10 MG TABLET (FP) PO SCH (12:56)
[2017-09-10] MEDS: chlordiazePOXIDE 5 MG CAPSULE PO SCH ×2 (17:17→22:25)
[2017-09-10] MEDS: traZODone HCL 100 MG TABLET (FP) PO SCH (22:25)
[2017-09-10] MEDS: ARIPiprazole 10 MG TABLET PO SCH (22:25)
[2017-09-10] MEDS: THIAMINE HCL 100 MG TABLET (FP) PO SCH (22:25)
[2017-09-10] MEDS: SULFAMETHOXAZOLE/TRIMETHOPRIM 800MG/160MG D.S. TABLET PO SCH (22:26)
[2017-09-11] MEDS: chlordiazePOXIDE 5 MG CAPSULE PO SCH ×2 (05:13→10:25)
[2017-09-11] MEDS: NAPROXEN 250 MG TABLET (FP) PO SCH ×2 (10:25→22:29)
[2017-09-11] MEDS: PRENATAL VITAMINS W/ FOLIC ACID TABLET (FP) PO SCH (10:25)
[2017-09-11] MEDS: amLODIPine BESYLATE 10 MG TABLET (FP) PO SCH (10:25)
[2017-09-11] MEDS: SULFAMETHOXAZOLE/TRIMETHOPRIM 800MG/160MG D.S. TABLET PO SCH ×2 (10:26→22:29)
--- NOTE | 2017-09-11 10:54 | PN ---
BHS Progress Note (SOAP) Subjective: ANXIETY,SWEATS,OOB ON [address] WITH STEADY GAIT. Objective: 09/11/17 10:50 Vital Signs Temperature 98.7 F 09/11/17 09:25 Pulse Rate 100 H 09/11/17 09:25 Respiratory Rate 20 09/11/17 09:25 Blood Pressure 128/89 09/11/17 09:25 O2 Sat by Pulse Oximetry (%) Laboratory Tests 09/08/17 09/08/17 09/09/17 16:18 Unknown 05:20 WBC RBC Hgb Hct MCV MCH MCHC RDW Plt Count MPV Sodium Potassium Chloride Carbon Dioxide Anion Gap BUN Creatinine Creat Clearance w eGFR POC Glucometer 178 179 Random Glucose Calcium Total Bilirubin AST ALT Alkaline Phosphatase Total Protein Albumin Urine Color Yellow Urine Appearance Cloudy Urine pH 5.0 Ur Specific [place] 1.018 Urine Protein 2+ H Urine Glucose (UA) Negative Urine Ketones Negative Urine Blood 2+ H Urine Nitrite Negative Urine Bilirubin Negative Urine Urobilinogen Negative Ur Leukocyte Esterase 3+ H Urine WBC (Auto) 1055 Urine RBC (Auto) 72 Ur Epithelial Cells Rare Urine Bacteria Rare Hyaline Casts 5 Urine Mucus Rare RPR Titer 09/09/17 09/09/17 09/09/17 07:45 07:45 07:45 WBC 5.8 RBC 4.40 Hgb 13.0 Hct 39.1 MCV 88.9 MCH 29.5 MCHC 33.1 RDW 15.3 Plt Count 292 D MPV 8.4 D Sodium 135 L Potassium 4.2 Chloride 99 Carbon Dioxide 28 Anion Gap 8 BUN 14 Creatinine 0.8 Creat Clearance w eGFR > 60 POC Glucometer Random Glucose 157 H D Calcium 8.8 Total Bilirubin 0.4 AST 17 ALT 29 Alkaline Phosphatase 97 Total Protein 7.6 Albumin 3.8 Urine Color Urine Appearance Urine pH Ur Specific [place] Urine Protein Urine Glucose (UA) Urine Ketones Urine Blood Urine Nitrite Urine Bilirubin Urine Urobilinogen Ur Leukocyte Esterase Urine WBC (Auto) Urine RBC (Auto) Ur Epithelial Cells Urine Bacteria Hyaline Casts Urine Mucus RPR Titer Nonreactive 09/09/17 09/09/17 09/10/17 16:22 17:30 05:38 WBC RBC Hgb Hct MCV MCH MCHC RDW Plt Count MPV Sodium Potassium Chloride Carbon Dioxide Anion Gap BUN Creatinine Creat Clearance w eGFR POC Glucometer 200 175 Random Glucose Calcium Total Bilirubin AST ALT Alkaline Phosphatase Total Protein Albumin Urine Color Yellow Urine Appearance Cloudy Urine pH 5.0 Ur Specific [place] 1.018 Urine Protein 1+ H Urine Glucose (UA) 2+ H Urine Ketones Negative Urine Blood 1+ H Urine Nitrite Negative Urine Bilirubin Negative Urine Urobilinogen Negative Ur Leukocyte Esterase 3+ H Urine WBC (Auto) 1556 Urine RBC (Auto) 112 Ur Epithelial Cells Rare Urine Bacteria Moderate Hyaline Casts Urine Mucus Rare RPR Titer 09/10/17 09/11/17 16:52 05:13 WBC RBC Hgb Hct MCV MCH MCHC RDW Plt Count MPV Sodium Potassium Chloride Carbon Dioxide Anion Gap BUN Creatinine Creat Clearance w eGFR POC Glucometer 194 168 Random Glucose Calcium Total Bilirubin AST ALT Alkaline Phosphatase Total Protein Albumin Urine Color Urine Appearance Urine pH Ur Specific [place] Urine Protein Urine Glucose (UA) Urine Ketones Urine Blood Urine Nitrite Urine Bilirubin Urine Urobilinogen Ur Leukocyte Esterase Urine WBC (Auto) Urine RBC (Auto) Ur Epithelial Cells Urine Bacteria Hyaline Casts Urine Mucus RPR Titer Microbiology 09/09/17 17:30 Urine - Urine Clean Catch Urine Culture - Preliminary Group D Strep Or Entero Coccus Assessment: 09/11/17 10:54 WITHDRAWAL SX UTI Plan: CONTINUE DETOX PT INSTRUCTED TO FOLLOW UP WITH PMD/UROLOGY WORKUP AFTER DETOX TREATMENT. COPY OF LAB RESULT GIVEN TO PATIENT FOR HIS PMD.
[2017-09-11] MEDS: INSULIN SLIDING SCALE (NOVOLOG) 1 VIAL SQ SCH (17:16)
[2017-09-11] MEDS ORDERED: INSULIN (NOVOLOG) ASPART 100 UNITS/ML 10ML VIAL ONE (17:16)
[2017-09-11] MEDS: chlordiazePOXIDE HCL 10 MG CAPSULE PO SCH ×2 (17:20→22:29)
[2017-09-11] MEDS: ARIPiprazole 10 MG TABLET PO SCH (22:29)
[2017-09-11] MEDS: traZODone HCL 100 MG TABLET (FP) PO SCH (22:29)
[2017-09-11] MEDS: THIAMINE HCL 100 MG TABLET (FP) PO SCH (22:29)
[2017-09-12] MEDS: chlordiazePOXIDE HCL 10 MG CAPSULE PO SCH (05:14)
[2017-09-12] MEDS ORDERED: INSULIN (NOVOLOG) ASPART 100 UNITS/ML 10ML VIAL ONE (05:42)
[2017-09-12] MEDS: INSULIN SLIDING SCALE (NOVOLOG) 1 VIAL SQ SCH (07:51)
[2017-09-12 09:27] VITALS: BP 121/87; PULSE 103; TEMP 96.9
[2017-09-12] MEDS: NAPROXEN 250 MG TABLET (FP) PO SCH (09:46)
[2017-09-12] MEDS: PRENATAL VITAMINS W/ FOLIC ACID TABLET (FP) PO SCH (09:46)
[2017-09-12] MEDS: amLODIPine BESYLATE 10 MG TABLET (FP) PO SCH (09:46)
[2017-09-12] MEDS: SULFAMETHOXAZOLE/TRIMETHOPRIM 800MG/160MG D.S. TABLET PO SCH (09:46)
--- NOTE | 2017-09-12 18:11 | DS ---
[facility] Detox Discharge Summary Admission Date: 09/08/17 Discharge Date: 09/12/17 - History Present History: Alcohol Dependence, Cocaine Dependence Additional Comments: PATIENT RETURNING TO [facility] ([facility] FOR TIME BEING. PATIENT REPORTS THAT HE WILL PURSUE AFTERCARE TREATMENT OPTION ON HIS OWN AFTER HE ATTENDS TO SOME UPCOMING PERSONAL MATTERS. PATIENT DENIES ANY UNUSUAL URINARY SYMPTOMS (BURNING, PAIN, FREQUENCY, URGENCY) AT TIME OF DISCHARGE FROM DETOX. PRESCRIPTION FOR BACTRIM DS BID X 10 DAYS (FINAL RESULTS OF URINE SENSITIVITY NOT YET AVAILABLE AT TIME OF DISCHARGE) SENT TO [facility] ( [place]) FOR PATIENT TO INFORMATICS SPEC IMMEDIATELY AFTER DISCHARGE FROM DETOX FOR FOLLOW-UP CARE. PATIENT ADVISED TO COMPLETE FULL COURSE OF ANTIBIOTIC AND TO FOLLOW-UP SOON POSSIBLE AFTER DISCHARGE FROM DETOX WITH [employer] [facility] GARRETT ( [facility]) FOR FURTHER MEDICAL EVALUATION. PATIENT VERBALIZED UNDERSTANDING OF RECOMMENDATIONS. PATIENT WAS DISCHARGED FROM DETOX UNIT IN STABLE MEDICAL CONDITION. Pertinent Past History: History of Seizure (ETOH Related), History of Coma, History of Tracheostomy, Schizophrenia, Depression, UTI, HTN, Borderline Type II DM, Psoriasis, History of Renal Stone, Schizoaffective Disorder, Insomnia. - Physical Exam Results Vital Signs: Vital Signs Temperature 96.9 F L 09/12/17 09:26 Pulse Rate 103 H 09/12/17 09:26 Respiratory Rate 20 09/12/17 09:26 Blood Pressure 121/87 09/12/17 09:26 O2 Sat by Pulse Oximetry (%) Pertinent Admission Physical Exam Findings: WITHDRAWAL SYMPTOMS. Laboratory Tests 09/08/17 09/08/17 09/09/17 16:18 Unknown 05:20 WBC RBC Hgb Hct MCV MCH MCHC RDW Plt Count MPV Sodium Potassium Chloride Carbon Dioxide Anion Gap BUN Creatinine Creat Clearance w eGFR POC Glucometer 178 179 Random Glucose Calcium Total Bilirubin AST ALT Alkaline Phosphatase Total Protein Albumin Urine Color Yellow Urine Appearance Cloudy Urine pH 5.0 Ur Specific [place] 1.018 Urine Protein 2+ H Urine Glucose (UA) Negative Urine Ketones Negative Urine Blood 2+ H Urine Nitrite Negative Urine Bilirubin Negative Urine Urobilinogen Negative Ur Leukocyte Esterase 3+ H Urine WBC (Auto) 1055 Urine RBC (Auto) 72 Ur Epithelial Cells Rare Urine Bacteria Rare Hyaline Casts 5 Urine Mucus Rare RPR Titer 09/09/17 09/09/17 09/09/17 07:45 07:45 07:45 WBC 5.8 RBC 4.40 Hgb 13.0 Hct 39.1 MCV 88.9 MCH 29.5 MCHC 33.1 RDW 15.3 Plt Count 292 D MPV 8.4 D Sodium 135 L Potassium 4.2 Chloride 99 Carbon Dioxide 28 Anion Gap 8 BUN 14 Creatinine 0.8 Creat Clearance w eGFR > 60 POC Glucometer Random Glucose 157 H D Calcium 8.8 Total Bilirubin 0.4 AST 17 ALT 29 Alkaline Phosphatase 97 Total Protein 7.6 Albumin 3.8 Urine Color Urine Appearance Urine pH Ur Specific [place] Urine Protein Urine Glucose (UA) Urine Ketones Urine Blood Urine Nitrite Urine Bilirubin Urine Urobilinogen Ur Leukocyte Esterase Urine WBC (Auto) Urine RBC (Auto) Ur Epithelial Cells Urine Bacteria Hyaline Casts Urine Mucus RPR Titer Nonreactive 09/09/17 09/09/17 09/10/17 16:22 17:30 05:38 WBC RBC Hgb Hct MCV MCH MCHC RDW Plt Count MPV Sodium Potassium Chloride Carbon Dioxide Anion Gap BUN Creatinine Creat Clearance w eGFR POC Glucometer 200 175 Random Glucose Calcium Total Bilirubin AST ALT Alkaline Phosphatase Total Protein Albumin Urine Color Yellow Urine Appearance Cloudy Urine pH 5.0 Ur Specific [place] 1.018 Urine Protein 1+ H Urine Glucose (UA) 2+ H Urine Ketones Negative Urine Blood 1+ H Urine Nitrite Negative Urine Bilirubin Negative Urine Urobilinogen Negative Ur Leukocyte Esterase 3+ H Urine WBC (Auto) 1556 Urine RBC (Auto) 112 Ur Epithelial Cells Rare Urine Bacteria Moderate Hyaline Casts Urine Mucus Rare RPR Titer 09/10/17 09/11/17 09/11/17 16:52 05:13 16:19 WBC RBC Hgb Hct MCV MCH MCHC RDW Plt Count MPV Sodium Potassium Chloride Carbon Dioxide Anion Gap BUN Creatinine Creat Clearance w eGFR POC Glucometer 194 168 240 Random Glucose Calcium Total Bilirubin AST ALT Alkaline Phosphatase Total Protein Albumin Urine Color Urine Appearance Urine pH Ur Specific [place] Urine Protein Urine Glucose (UA) Urine Ketones Urine Blood Urine Nitrite Urine Bilirubin Urine Urobilinogen Ur Leukocyte Esterase Urine WBC (Auto) Urine RBC (Auto) Ur Epithelial Cells Urine Bacteria Hyaline Casts Urine Mucus RPR Titer 09/12/17 05:14 WBC RBC Hgb Hct MCV MCH MCHC RDW Plt Count MPV Sodium Potassium Chloride Carbon Dioxide Anion Gap BUN Creatinine Creat Clearance w eGFR POC Glucometer 227 Random Glucose Calcium Total Bilirubin AST ALT Alkaline Phosphatase Total Protein Albumin Urine Color Urine Appearance Urine pH Ur Specific [place] Urine Protein Urine Glucose (UA) Urine Ketones Urine Blood Urine Nitrite Urine Bilirubin Urine Urobilinogen Ur Leukocyte Esterase Urine WBC (Auto) Urine RBC (Auto) Ur Epithelial Cells Urine Bacteria Hyaline Casts Urine Mucus RPR Titer LABS NOTED. - Treatment Hospital Course: Detox Protocol Followed, Detoxed Safely, Responded well, Discharged Condition Good Patient has Accepted a Rehab Referral to: PATIENT RETURNING TO [facility] - Medication Discharge Medications: Ambulatory Orders Folic Acid - 1 mg PO DAILY 03/22/17 Multivitamins [Tab-A-Vit -] 1 tab PO DAILY 03/22/17 Aripiprazole [Abilify -] 10 mg PO HS #30 mg 09/11/17 Bupropion HCl [Wellbutrin Xl -] 150 mg PO DAILY #30 tab.sr.24h 09/11/17 traZODone HCL [Desyrel -] 100 mg PO HS #30 tablet 09/11/17 Amlodipine Besylate [Norvasc -] 10 mg PO DAILY #30 tablet 09/12/17 Sulfamethoxazole/Trimethoprim [Bactrim Ds -] 1 tab PO BID 10 Days #20 tablet 10/25 - Diagnosis (1) Alcohol dependence with uncomplicated withdrawal Status: Acute (2) History of tracheostomy Status: Chronic (3) Insomnia Status: Acute Qualifiers: Insomnia type: unspecified Qualified Code(s): G47.00 - Insomnia, unspecified (4) Diabetes mellitus type 2, diet-controlled Status: Chronic (5) Essential hypertension Status: Chronic (6) History of renal stone Status: Chronic (7) Psoriasis Status: Chronic (8) New onset type 2 diabetes mellitus Status: Acute (9) Syncope Status: Chronic Qualifiers: Syncope type: unspecified Qualified Code(s): R55 - Syncope and collapse (10) Alcohol related seizure Status: Suspected (11) History of coma Status: Inactive (12) Schizoaffective disorder Status: Suspected Qualifiers: Schizoaffective disorder type: unspecified Qualified Code(s): F25.9 - Schizoaffective disorder, unspecified (13) Substance induced mood disorder Status: Acute (14) UTI (urinary tract infection) Status: Acute Qualifiers: Urinary tract infection type: acute cystitis Hematuria presence: with hematuria Qualified Code(s): N30.01 - Acute cystitis with hematuria - AMA Did Patient Leave Against Medical Advice: No
== END 2017-09-12 09:49 | disposition home or self-care (01) | DRG 897 ==
LOC: YASAS 11:01 → Y3N 15:07
PROVIDERS: ADMIT Internal Medicine; ATTEND Internal Medicine
PROC: HZ2ZZZZ Detoxification Services for Substance Abuse Treatment (ICD-10-PCS; principal; 2017-09-08)
DX: F10.230 Alcohol dependence with withdrawal, uncomplicated (principal); F14.20 Cocaine dependence, uncomplicated; G40.509 Epileptic seizures related to external causes, not intractable, without status epilepticus; F19.24 Other psychoactive substance dependence with psychoactive substance-induced mood disorder; F25.9 Schizoaffective disorder, unspecified; F03.90 Unspecified dementia, unspecified severity, without behavioral disturbance, psychotic disturbance, mood disturbance, and anxiety; G47.00 Insomnia, unspecified; R55 Syncope and collapse; I10 Essential (primary) hypertension; E11.9 Type 2 diabetes mellitus without complications; L40.9 Psoriasis, unspecified; Z87.898 Personal history of other specified conditions; Z87.442 Personal history of urinary calculi; Z86.19 Personal history of other infectious and parasitic diseases; Z87.438 Personal history of other diseases of male genital organs; Z59.0 Homelessness
CPT/HCPCS: 36415; 73130-TC-RT-FY; 80053; 81003; 81015; 82962; 85027; 86593; 87086; 87186; 93005; 93010